=== PATIENT | female | born 1980 | race Caucasian/White ===

== ENCOUNTER 2024-04-01 21:40 | Emergency (ER) | payer OTHER, SELFPAY ==
[2024-04-01 21:44] VITALS: BP 145/92; PULSE 90; RESP 18; TEMP 36.8; O2SAT 99; BMI 32.6
--- NOTE | 2024-04-01 21:55 | ED_ITS ---
HPI - Headache General Date Seen: 04/01/24 Chief Complaint: Headache/Migraine Stated Complaint: Migraine Time Seen by Provider: 04/01/24 21:44 Source: patient Mode of arrival: ambulatory Limitations: no limitations History of Present Illness HPI Narrative: Patient is a 44-year-old female with a history of migraines presenting to emergency department for headache. States the migraines have been going on for years she sees a neurologist for it. This 1 started at about 13:00 today. She took her home Maxalt without improvement in her symptoms. States her neurologist recently daughter started taking 2 of them but when she does makes her feel sick so showed a took 1 today. She took Zofran because she was feeling nauseated. Pain is in her right forehead and seems to go down her neck. Has had migraines like this before was 1 does seem low bit worse. Has not needed to come to the emergency department for migraines before. Denies fevers, chills, vision changes, hearing changes, weakness, numbness, chest pain, shortness of breath, lightheadedness, dizziness. No other concerns noted. Related Data Home Medications ?Medication ?Instructions ?Recorded ?Confirmed drospirenone 3 mg-ethinyl 1 tab PO DAILY 04/01/24 04/01/24 estradiol 0.02 mg tablet rizatriptan 10 mg tablet PO 04/01/24 Allergies Allergy/AdvReac Type Severity Reaction Status Date / Time No Known Drug Allergies Allergy Verified 04/01/24 21:46 Review of Systems 2 Status of ROS: Reports: 10 or more systems reviewed and unremarkable except as noted in History and below [facility] Medical History (Updated 04/01/24 @ 22:44 by Gregorio Gudino DO) Tear of lateral meniscus of right knee ?S83.281A - Other tear of lateral meniscus, current injury, right knee, initial encounter (ICD-10) Situational anxiety ?F41.8 - Other specified anxiety disorders (ICD-10) Panic attack ?F41.0 - Panic disorder [episodic paroxysmal anxiety] (ICD-10) Mixed hyperlipidemia ?E78.2 - Mixed hyperlipidemia (ICD-10) Mild preeclampsia ?O14.00 - Mild to moderate pre-eclampsia, unspecified trimester (ICD-10) Medullary sponge kidney ?Q61.5 - Medullary cystic kidney (ICD-10) Kidney stones ?N20.0 - Calculus of kidney (ICD-10) BEKAH (generalized anxiety disorder) ?F41.1 - Generalized anxiety disorder (ICD-10) Arthritis of right knee ?M17.11 - Unilateral primary osteoarthritis, right knee (ICD-10) Acne vulgaris ?L70.0 - Acne vulgaris (ICD-10) Migraines ?G43.909 - Migraine, unspecified, not intractable, without status migrainosus (ICD-10) Surgical History (Updated 04/01/24 @ 22:13 by Davion Munguia RN) History of tonsillectomy and adenoidectomy ?Z90.89 - Acquired absence of other organs (ICD-10) History of arthroscopy ?Z98.890 - Other specified postprocedural states (ICD-10) History of section ?Z98.891 - History of uterine scar from previous surgery (ICD-10) History of breast augmentation ?Z98.82 - Breast implant status (ICD-10) Social History Smoking Status: Never smoker Second hand tobacco smoke exposure: No How often do you have a drink containing alcohol: never AUDIT-C Alcohol total score: 0 Non-prescribed substance use: denies use Exam Narrative: Exam Narrative: Const: Well-nourished, Well-developed, appears uncomfortable Eyes: PERRL, no conjunctival injection, and symmetrical lids HENT: Atraumatic external nose and ears. Moist mucous membranes. Neck: Symmetric, trachea midline, No thyromegaly. CVS: RRR, No murmurs or gallops. Peripheral pulses 2+ and equal in all extremities RESP: Unlabored respiratory effort. Clear to auscultation bilaterally. GI: Nontender/Nondistended, No rebound or guarding. MSK:Extremities w/o deformity, Normal Active ROM Skin: Warm, Dry. No rashes or lesions. Neuro: Normal Muscle tone, No focal neurological deficits. Psych: Awake, Alert, & Oriented x3. Appropriate mood and affect. Const: Vital Signs, click to edit/add: Vital Signs - 24 hr 04/01/24 21:44 04/01/24 22:07 Temperature 98.2 F 98.2 F Pulse Rate [Right Pulse Oximeter] 90 Respiratory Rate 18 Blood Pressure [Ri ght Upper Arm] 145/92 H Pulse Oximetry 99 Oxygen Delivery Me thod Room Air Course Vital Signs Vital signs: Initial Vital Signs Temperature 98.2 F 04/01/24 21:44 Temperature Source Temporal Artery Scan 04/01/24 21:44 Pulse Rate 90 04/01/24 21:44 Respiratory Rate 18 04/01/24 21:44 Blood Pressure 145/92 H 04/01/24 21:44 Blood Pressure Mean 109 H 04/01/24 21:44 Blood Pressure Position Sitting 04/01/24 21:44 Pulse Oximetry 99 04/01/24 21:44 Oxygen Delivery Method Room Air 04/01/24 21:44 Vital Signs Temperature 98.2 F 04/01/24 21:44 Pulse Rate 90 04/01/24 21:44 Respiratory Rate 18 04/01/24 21:44 Blood Pressure 145/92 H 04/01/24 21:44 Pulse Oximetry 99 04/01/24 21:44 Oxygen Delivery Method Room Air 04/01/24 21:44 Temperature 98.2 F 04/01/24 22:07 Pulse Rate 90 04/01/24 21:44 Respiratory Rate 18 04/01/24 21:44 Blood Pressure 145/92 H 04/01/24 21:44 Pulse Oximetry 99 04/01/24 21:44 Oxygen Delivery Method Room Air 04/01/24 21:44 Medications Administered Medications: Generic Name Dose Route Start Last Admin Trade Name Freq PRN Reason Stop Dose Admin Lactated Ringer's 1,000 mls @ 1,000 mls/hr 04/01/24 21:53 04/01/24 22:00 Lactated Ringers 1000 Ml IV 04/01/24 22:52 1,000 mls/hr .Q1H ONE Administration Discontinued Medications Generic Name Dose Route Start Last Admin Trade Name Freq PRN Reason Stop Dose Admin Diphenhydramine HCl 25 mg 04/01/24 21:53 04/01/24 22:05 Diphenhydramine 50 Mg/Ml Inj IVP 04/01/24 21:54 25 mg ONCE ONE Administration Ketorolac Tromethamine 15 mg 04/01/24 21:53 04/01/24 22:07 Ketorolac 15 Mg/Ml Inj IVP 04/01/24 21:54 15 mg ONCE ONE Administration Metoclopramide HCl 10 mg 04/01/24 21:53 04/01/24 22:00 Metoclopramide Hcl 5 Mg/Ml Inj IVP 04/01/24 21:54 10 mg ONCE ONE Administration MDM - Headache MDM Narrative Medical decision making narrative: Patient is a 44-year-old female presenting for a migraine. She has a history of migraines and be did not describe this as the worst headache of her life. Also it was not sudden onset. Believe subarachnoid hemorrhage is very unlikely. Seems unlikely to be an intracranial mass and I do not believe head imaging is necessary. At this time I will given a migraine cocktail included 1 L of fluids, Reglan, Benadryl, Toradol. After the migraine cocktail her headache is feeling much better and she feels comfortable for discharge. Patient will be discharged at this time. Discharge Plan Discharge Clinical Impression: Migraine Qualifiers: Migraine type: unspecified Status migrainosus presence: without status migrainosus Intractability: not intractable Qualified Code(s): G43.909 - Migraine, unspecified, not intractable, without status migrainosus Patient Disposition: Home, Self-Care Condition: Improved Instructions: Migraine Headache (ED) Additional Instructions: Continue to take her home migraine medication as previously prescribed. Return for new or worsening symptoms straight Prescriptions: No Action rizatriptan 10 mg tablet PO drospirenone-ethinyl estradiol 3-0.02 mg tablet 1 tab PO DAILY Follow Up/Referrals: David Horton PA-C [Physician Director Of Managed Care] - Stand Alone Forms: [employer] Info Instructions
[2024-04-01] MEDS: METOCLOPRAMIDE HCL 5 MG/ML INJ 10 MG IVP (22:00)
[2024-04-01] MEDS: LACTATED RINGERS 1000 ML 1,000 ML IV (22:00)
[2024-04-01] MEDS: diphenhydrAMINE 50 MG/ML inj 25 MG IVP (22:05)
[2024-04-01 22:07] VITALS: TEMP 36.8
[2024-04-01] MEDS: KETOROLAC 15 MG/ML inj IVP (22:07)
--- OUTSIDE RECORDS SUMMARY | 2024-04-01 22:08 | XMS_ITS | Encounter Summary ---
Author Organization [place] Address [address] [place] [address] Care Team Providers Care Supervisor Pyrotechnic Loading Name Role Phone [facility], [facility] Primary Care Provider Desean Hernandez MD Unavailable [phone] Kimberley Brunson MD Unavailable [phone] Desean Hernandez MD Unavailable [phone] Reason for Visit * Reason Onset Date Comments Call Back 11/09/[address] Hernandez requested for Pt to come in by 10/15/2020 to be seen for annual follow up with potential KUB imaging done as well. Please call to schedule with Pt at [phone]. Encounter Details Date Type Department Care Team (Late st Contact Info) Description 11/09/2020 [facility] [address] [place] [address] Desean Hernandez MD [address] [address] Call Back (Pt said that Dr. Hernandez requested for Pt to come in by 10/15/2020 to be seen for annual follow up with potential KUB imaging done as well. Please call to schedule with Pt at [phone].) Social History Tobacco Use Types Packs/Day Years Used Date Smoking Tobacco: Never Smokeless Tobacco: Never PHQ-2 Answer Date Recorded PHQ-2 Score 0 09/15/2019 Sex and Gender Information Value Date Recorded Sex Assigned at Not on file Gender Identity Not on file Sexual Orientation Not on file documented as of this encounter Miscellaneous Notes * Telephone Encounter - Rober Pathak - 11/09/2020 12:13 PM CST [facility] Phone Message May a detailed message be left on voicemail: yes Reason for Call: Other: Pt said that Dr. Hernandez requested for Pt to come in by 10/15/2020 to be seen for annual follow up with potential KUB imaging done as well. Please call to schedule with Pt at [phone] Action Taken: Message routed to: [facility] Urology Travel Screening: Not Applicable STATION AGENT documented in this encounter Plan of Treatment Not on file documented as of this encounter Visit Diagnoses Not on filedocumented in this encounter Care Teams Supervisor Pyrotechnic Loading Relationship Specialty Start Date End Date Clinic, [facility] [address] [place] [address] PCP - General 01/27/19 Desean Hernandez MD [address] [place] [address] Assigned Surgical Provider 07/21/20 06/13/23 [place] [address] [place] [address] Family Medicine 05/07/21 Desean Hernandez MD [address] [place] [address] Assigned Surgical Provider 07/19/23 documented as of this encounter
--- OUTSIDE RECORDS SUMMARY | 2024-04-01 22:08 | XMS_ITS | Encounter Summary ---
Author Organization [place] Address [address] [place] [address] Care Team Providers Care Crm Architect Name Role Phone [facility], [facility] Primary Care Provider Desean Hernandez MD Unavailable Kimberley Brunson MD Unavailable [phone] Desean Hernandez MD Unavailable Reason for Visit * Reason Onset Date Comments Call Back 08/04/2019 Schedule Post-op - David in [place] Encounter Details Date Type Department Care Team (Late st Contact Info) Description 08/04/2019 [facility] [address] [place] [address] Desean Hernandez MD [address] [address] Call Back (Schedule Post-op - David in [place] ) Social History Tobacco Use Types Packs/Day Years Used Date Smoking Tobacco: Never Smokeless Tobacco: Never Sex and Gender Information Value Date Recorded Sex Assigned at Not on file Gender Identity Not on file Sexual Orientation Not on file documented as of this encounter Miscellaneous Notes * Telephone Encounter - Merced Flores - 08/04/2019 10:24 AM CST [facility] Call Center Phone Message May a detailed message be left on voicemail: yes Reason for Call: Other: Pt called and would like to schedule a post-op with Dr. hernandez in [place]. Please call back pt. Thanks. Action Taken: Message routed to: Other: [place] [facility] documented in this encounter Plan of Treatment Not on file documented as of this encounter Visit Diagnoses Not on filedocumented in this encounter Care Teams Crm Architect Relationship Specialty Start Date End Date Clinic, [facility] [address] [place] [address] PCP - General 01/27/19 Desean Hernandez MD [address] [place] [address] Assigned Surgical Provider 07/21/20 06/13/23 [place] [address] [place] [address] Family Medicine 05/07/21 Desean Hernandez MD [address] [place] [address] Assigned Surgical Provider 07/19/23 documented as of this encounter
--- OUTSIDE RECORDS SUMMARY | 2024-04-01 22:08 | XMS_ITS | Clinical Summary ---
Author Organization [facility] Address [place], [place] [address] Care Team Providers Care Locomotive Supervisor Name Role Phone Kimberley Brunson MD Primary Care Provider Tatyana Zuluaga Unavailable [phone] Unavailable [phone] Allergies Active Allergy Reactions Criticality Noted Date Comments Morphine Vomiting 01/27/2019 Medications Medication Sig Dispensed Refills Start Date End Date Status LORazepam (ATIVAN) 0.5 mg tabIndications:Gene ralized anxiety disorder,Situationa l anxiety Take 1 Tablet (0.5 mg) by mouth once daily. 10 Tablet 03/26/2023 Active ondansetron (ZOFRAN ODT) 4 mg disintegrating tabletIndications:M igraine with aura, not intractable, without status migrainosus Place 1 Tablet (4 mg) on the tongue every 8 hours if needed for Nausea/Vomitin g. 30 Tablet 03/26/2023 Active rizatriptan (MAXALT) 5 mg tabletIndications:M igraine with aura, not intractable, without status migrainosus Take 1 Tablet (5 mg) by mouth every 2 hours if needed for Migraine. Give at minimum 2hrs apart. Max Dose: 30mg per 24hrs. 10 Tablet 12 03/26/2023 Active tretinoin 0.05 % 0.05 % creamIndications:Ac ne vulgaris Apply topically to affected area(s) at bedtime. 45 g 03/26/2023 Active triamcinolone (ARISTOCORT) 0.1 % ointmentIndications :Acne vulgaris Apply topically to affected area(s) 3 times daily if needed (Itching). 80 g 03/26/2023 Active clindamycin 1% (CLEOCIN-T) 1 % lotionIndications:A cne vulgaris Apply topically to affected area(s) two times daily. 180 mL 04/09/2023 Active drospirenone-ethiny l estradioL (ROLANDO) 3-0.02 mg tablet Take 1 Tablet by mouth once daily. 06/13/2023 06/12/20 24 Active phentermine (ADIPEX-P) 37.5 mg tabletIndications:O verweight TAKE 1/2 TABLET BY MOUTH BEFORE BREAKFAST AND AT LUNCH 30 Tablet 02/26/2024 Active buPROPion (WELLBUTRIN XL) 150 mg Extended-Release tabletIndications:G eneralized anxiety disorder,Situationa l anxiety TAKE 1 TABLET(150 MG) BY MOUTH EVERY MORNING 90 Tablet 1 03/29/2024 Active buPROPion (WELLBUTRIN XL) 150 mg Extended-Release tabletIndications:G eneralized anxiety disorder,Situationa l anxiety Take 1 Tablet (150 mg) by mouth every morning. 100 Tablet 3 03/26/2023 03/29/20 24 Discontinued Active Problems Problem Noted Date Diagnosed Date Acne vulgaris 04/09/2023 Migraine with aura, not intr actable, without status migrainosus 04/09/2023 Generalized anxiety disorder 04/30/2021 Situational anxiety 04/30/2021 Panic attack 10/26/2017 Resolved Problems Problem Noted Date Diagnosed Date Resolved Date Mixed dyslipidemia 10/08/2019 Overview: ASCVD 10 year risk 0.56%. Left wrist pain 11/14/2018 04/09/2023 Adjustment disorder with anxiety 10/26/2017 04/09/2023 Arthritis of knee, right 06/12/201508/2023 Tear of lateral meniscus of right knee 06/01/2015 04/09/2023 Mild preeclampsia 07/27/2009 04/09/2023 Supervision of normal first 03/23/2009 04/09/2023 Encounters Date Type Department Care Team Description 03/27/2024 Refill [facility] [address] [place] [address] Kimberley Brunson MD Refill Request (Bupropion) 03/04/[address] [phone] Tatyana Zuluaga PA Prior Authorization (phentermine (ADIPEX-P) 37.5 mg tablet DENIED) 02/24/2024 Refill [facility] [address] [place] [address] Kimberley Brunson MD Refill Request (Clindamycin 1%) 02/24/[address] [facility] [id number] [place] [phone] Tatyana Zuluaga PA Refill Request (Phentermine) 01/22/2024 11:40 AM CDT Office Visit [facility] [address] [place] [address] Erika Zuleta PA Vaginal Itching 01/22/2024 Travel from Last 3 Months Immunizations Name Administration Dates Next Due Anthrax Vaccine 07/21/2004, 4,06/14/2003,12/24,12/11/2002,11/25/2002 Hepatitis A (Adult) 03/02/2002,07/18/2001 Influenza A (H1N1), Inactiva merle (Age >=3 Years) 08/08/2009 Influenza, IIV3 (Age >=3 years) 06/26/2009 Influenza, IIV4 06/21/2020,06/28/2019 Influenza, Whole Virus 06/26/2009,2005,08/08/2004,06/30,08/14/2002,07/16/2001,09/04/2000 ,08/19/1999 Influenza, split (incl. saurabh fied surface antigen) 08/17/2010,08/09/2008,10/10/2007,08/18 Meningococcal Vaccine (Menomune) 11/25/2002 Oral Polio Vaccine 06/29/1997 Smallpox (Vaccinia) Live [id number] 07/21/2003 Td (Age >=7 Years) 10/08/2019,07/16/2001 Tdap 07/31/2009 Typhoid (injectable) 11/18/2009 Typhoid Parenteral,Killed 10/10/2007,,07/21/2003,07/18 Yellow Fever 07/16/2001 Family History Medical History Relation Name Comments Allergies Brother Zak Hyperlipidemia Brother Zak Hypertension Brother Zak No Known Problems Daughter Evangelina Cancer-prostate Father Diabetes Father Diabetes type II Father Hyperlipidemia Father Hypertension Father Cancer Maternal Grandmother Allergies Mother Anxiety disorder Mother Depression Mother Hyperlipidemia Mother Obesity Mother Stroke Mother Thyroid Disease Mother Diabetes Paternal Grandfather Cancer-breast Paternal Grandmother Allergies Son Matthew Sun Allergy Relation Name Status Comments Brother Zak Alive Daughter Evangelina Alive Father Alive Maternal Grandfather Alive Maternal Grandmother Mother Alive Paternal Grandfather Paternal Grandmother Son Matthew Alive Social History Tobacco Use Types Packs/Day Years Used Date Smoking Tobacco: Former Cigarettes 0.3 1.2 2 003 - 12/12/2003 Smokeless Tobacco: Never Tobacco Cessation:Counseling Given: Yes Comments:no exposure Alcohol Use Standard Drinks/Week Comments Not Currently 0 (1 standard drink = 0.6 oz pur e alcohol) PHQ-2 Answer Date Recorded PHQ-2 TOTAL SCORE 0 03/26/2023 Social Connections Answer Date Recorded Frequency of Communication with Friends and Fami ly 0 04/09/2023 Financial Resource Strain Answer Date R ecorded Difficulty of Paying Living Expenses 3 04/09/2023 Difficulty of Paying Living Expenses Not on file 04/09/2023 Food Insecurity Answer Date Recorded Worried About Running Out of Food in the Last Ye ar 1 04/09/2023 Transportation Needs Answer Date Record ed Lack of Transportation (Medical) 1 04/09/2023 Housing Stability Answer Date Recorded Unable to Pay for Housing in the Last Year 1 04/09/2023 Sex and Gender Information Value Date Recorded Sex Assigned at Not on file Gender Identity Not on file Sexual Orientation Not on file Obstetrics History Para Term AB IAB SAB Ectopic Multiple Livin g Live Births 5 1 1 0 4 0 4 0 1 1 Date Outcome GA Total Labor Labor/2nd/3rd Weight Sex Type Anes PTL Deja A1 A5 Name Clin SAB SAB SAB SAB 07/28 Term 3.77 kg (8 lb 5 oz) M CS-Un spec Living Matthew Comments LMP unknown Last Filed Vital Signs Vital Sign Reading Time Taken Comments Blood Pressure 110/70 01/22/2024 11:53 AM CDT Pulse 82 01/22/2024 11:53 AM CDT Temperature 37.2 ??C (99 ??F) 11/04/2023 12:04 PM PRODUCTION MECHANIC TIN CANS Respiratory Rate 16 08/14/2023 11:16 AM PRODUCTION MECHANIC TIN CANS Oxygen Saturation 100% 01/22/2024 11:53 AM CDT Inhaled Oxygen Concentration - - Weight 73.6 kg (162 lb 4.8 oz) 01/22/2024 11:53 AM CDT Height 161.1 cm (5' 3.43) 01/22/2024 11:53 AM C DT Body Mass Index 28.37 01/22/2024 11:53 AM CDT Plan of Treatment Health Maintenance Due Date Last Done Comments COVID-19 vaccine series () 05/30/2023 Colonoscopy through age 75 02/18/2024 Depression screening for age 12+ 04/09/2024 04/09/2023, 03/26/2023, 02/21/2022, Additional history exists Mammogram for age 45-75 05/28/2024 05/28/2023 Influenza for age 9-49 05/30/2024 0, 06/28/2019, 08/08/2009, Additional history exists BMI (ht and wt on same day) for age 18+ 01/21/2025 01/22/2024, 12/05/2023, 11/04/2023, Additional history exists Pap test for age 21-65 05/12/2026 3 (Verified in Care Everywhere or Patient Record), 08/17/2018 (Verified in Care Everywhere or Patient Record), 10/23/2010, Additional history exists Lipids for age 45-75 04/09/2028 04/09/2023 Tetanus booster 10/08/2029 10/08/2019, 11/0 10/2008, 07/16/2001 HIV for age 15-65 Completed 12/22/2008 Tdap Completed 07/31/2009 Hepatitis C screening for age 18-79 Completed 04/09/2023 Pneumococcal series for age 6-64 Aged Out No longer eligible based on patient's age to complete this topic Procedures Procedure Name Priority Date/Time Associated Diagnosis Comments TRICHOMONAS, HANS, AND BACTERIAL VAGINOSIS BY JOSE JUAN Routine 01/22/2024 12:28 PM CDT Vaginal irritation UA W/ SEDIMENT EXAM REFLEXED PER CRITERIA Routine 01/22/2024 11:48 AM CDT Dysuria XR MAMMO TIFFANIE BILAT SCREEN IMPLANT Routine 05/28/2023 1:21 PM CDT Visit for screening mammogram LC HCV ANTIBODY RFX TO QUANT PCR Routine 04/09/2023 12:29 PM CDT Need for hepatitis C screening test LIPID PANEL W REFLEX MEASURED LDL Routine 04/09/2023 12:29 PM CDT Screening, lipid MACHINE PULLER AND LASTER THIN PREP PAP SCREEN IMAGED Routine 10/23/2010 1:46 PM PRODUCTION MECHANIC TIN CANS Screening for malignant neoplasm of the cervix ANTI HIV 1/2 Routine 12/22/2008 2:35 PM CDT Supervision of Normal First from Last 3 Months or Most Recently Relevant to Health Maintenance Results * TRICHOMONAS, HANS, AND BACTERIAL VAGINOSIS BY JOSE JUAN (01/22/2024 12:28 PM CDT) HANS SPECIES Negative Negative 4 8:09 PM CDT [facility] HANS GLABRATA Negative Negative 01/22/2024 8:09 PM CDT [facility] TRICHOMONAS VVA Negative Negative 4 8:09 PM CDT [facility] BACTERIAL VAGINOSIS Negative Negative 01/22/2024 8:09 PM CDT [facility] Other VAGINAL SWAB / Unknown Non-Blood / Unknown 01/22/2024 12:28 PM CDT 01/22/2024 12:28 PM CDT Erika RODRIGUEZ MICROBIOLOGY [facility] [address] [place] [address], * (ABNORMAL) UA W/ SEDIMENT EXAM REFLEXED PER CRITERIA (01/22/2024 11:48 AM CDT) COLOR Yellow Yellow Color 01/22/2024 11:52 AM CDT [facility] CLARITY Clear Clear Clarity 01/22/2024 11:52 AM CDT [facility] SPECIFIC GRAVITY,URINE >=1.030(A) 1.010, 1.015, 1.020, 1.025 01/22/2024 11:52 AM CDT [facility] PH,URINE 5.5 6.0, 7.0, 8.0, 5.5, 6.5, 7.5, 8.5 01/22/2024 11:52 AM CDT [facility] UROBILINOGEN, QUALITATIVE Normal Normal EU/dl 01/22/2024 11:52 AM CDT [facility] [place] PROTEIN, URINE Negative Negative mg/dL 01/22/2024 11:52 AM CDT [facility] [place] [place] GLUCOSE, URINE Negative Negative mg/dL 01/22/2024 11:52 AM CDT [facility] [place] [place] KETONES,URINE Negative Negative mg/dL 01/22/2024 11:52 AM CDT [facility] BILIRUBIN,URI NE Negative Negative 01/22/2024 11:52 AM CDT [facility] [place] OCCULT BLOOD,URINE Negative Negative 01/22/2024 11:52 AM CDT [facility] [place] [place] NITRITE Negative Negative 01/22/2024 11:52 AM CDT [facility] [place] [place] LEUKOCYTE ESTERASE Negative Negative 01/22/2024 11:52 AM CDT [facility] Urine URINE SPECIMEN / Unknown Non-Blood / Unknown 01/22/2024 11:48 AM CDT 01/22/2024 11:48 AM CDT Erika RODRIGUEZ URINE [facility] [address] [place] [address], * XR MAMMO TIFFANIE BILAT SCREEN IMPLANT (05/28/2023 1:21 PM CDT) Anatomical Region Laterality Modality BREASTS, Breast Left, Breast Right Bilateral Mammography Impressions 05/29/2023 12:47 PM CDT ??There is no radiographic evidence for malignancy. ??Recommend annual mammograms. MAMMOGRAM ASSESSMENT: ??ACR 2 Benign PATIENTS: You will also receive a letter with your examination results in an easy to read format. ??If you have questions about your results, please contact your referring provider. Narrative 05/29/2023 12:47 PM CDT For Patients: As a result of the Cures Act, medical imaging exams and procedure reports are released immediately into your electronic medical record. You may view this report before your referring provider. If you have questions, please contact your health care provider. XR MAMMO TIFFANIE BILAT SCREEN IMPLANT [[id number]] CLINICAL HISTORY: ??This is an asymptomatic 43 y.o. patient. INDICATION FOR EXAM: Mammogram Screening. TECHNIQUE: CC & MLO views were obtained. Implant displacement views were obtained. This study was evaluated with the assistance of Computer-Aided Detection. Breast Tomosynthesis was used in interpretation. COMPARISON FILMS: Yes 12/14/21 [facility] 08/02/20 [facility] FINDINGS: ??The breasts are heterogeneously dense, which may obscure small masses. ??No suspicious masses or microcalcifications. ??There are breast implant(s) present.. Kimberley Brunson MD MAMMO * LC HCV ANTIBODY RFX TO QUANT PCR (04/09/2023 12:29 PM CDT) HCV Ab Non Reactive Non Reactive 04/11/2023 10:06 PM CDT [facility] Blood BLOOD SPECIMEN / Unknown Venipuncture / Unknown 04/09/2023 12:29 PM CDT 04/09/2023 12:29 PM CDT Narrative [facility]) - 04/11/2023 10:06 PM CDT Performed at: ??[address] - [address] ??[id number] [employer] Center Analyst: Anoop Pérez MD, Phone: ??[phone] Kimberley Brunson MD LABORATORY [facility] ([facility] [address] [place] [address] * (ABNORMAL) LIPID PANEL W REFLEX MEASURED LDL (04/09/2023 12:29 PM CDT) CHOLESTEROL,TOTAL 214(H) 100 - 199 mg/dL 04/09/2023 5:47 PM CDT [facility] Comment: Cholesterol, Total Reference Ranges Desirable <200 mg/dL Borderline 200-239 mg/dL High >=240 mg/dL TRIGLYCERIDES 220(H) <150 mg/dL 04/09/2023 5:47 PM CDT [facility] HDL CHOLESTEROL 55 >40 mg/dL 5:47 PM CDT [facility] NON-HDL CHOLESTEROL 159(H) <145 mg/dl 04/09/2023 5:47 PM CDT [facility] CHOL/HDL RATIO 3.89 <4.50 04/09/2023 5:47 PM CDT [facility] LDL CHOLESTEROL 115 <=130 mg/dL 04/09/2023 5:47 PM CDT [facility] VLDL CHOLESTEROL 44(H) <=30 mg/dL 04/09/2023 5:47 PM CDT [facility] PROVIDER ORDERED STATUS RANDOM 04/09/2023 5:47 PM CDT [facility] Blood BLOOD SPECIMEN / Unknown Venipuncture / Unknown 04/09/2023 12:29 PM CDT 04/09/2023 12:29 PM CDT Kimberley Brunson MD CHEMISTRY [facility] [address] [place] [address], * MACHINE PULLER AND LASTER THIN PREP PAP SCREEN IMAGED (10/23/2010 1:46 PM PRODUCTION MECHANIC TIN CANS) CYTOLOGY CYTOPATHOLOGY REPORT [facility] Status: Final Status ?[id number] CLINICAL INFORMATION Last Date of LMP ? :09/29/10 Last Pap Date ?:09/11/2009 Last Pap Result ?:NIL ABN [place]/Bx Past 5 YRS :None Hormone Usage ?:BCP/OCP/Patch/R ing Menstrual Status ? :Regular Periods [place]/Bx done today ? :No Additional Information :None given HPV Request ?:HPV if ASCUS SPECIMEN SOURCE ?:Cervical/vagina l ThinPrep Vial, screening SPECIMEN ADEQUACY ?:Satisfactory for evaluation Endocervical component ? present. INTERPRETATION/RES ULT Negative for intraepithelial lesion or malignancy (NIL) Cytology 1st Screener ??:sag Cytology 2nd Screener ??:djs Signed by ?:djs This specimen was screened by the FDA approved ThinPrep Imaging System and manually reviewed. NOTE: ??The Pap test is a screening technique, not a diagnostic procedure. ??It is used ??primarily to screen for squamous cancers and precursor lesions. ??Published studies have shown that it is subject to both false negative and false positive results. ??The pap test should not be used as the sole means to diagnose or exclude pre-malignant and malignant lesions. COLLECTED:10/23/10 ? ACCESSIONED: ??10/24/10 ?? SIGNED: ??10/31/10 [facility] PAP [place] CODE NIL [facility] Cervical/Vaginal (Cervical/Vagina l) 10/23/2010 1:46 PM PRODUCTION MECHANIC TIN CANS 10/23/2010 1:45 PM PRODUCTION MECHANIC TIN CANS Malina Dover MD PATHOLOGY/CYT OLOGY [facility]OR[facility]ORY INTERNAL ZIP [address] [place] [id number] * ANTI HIV 1/2 (12/22/2008 2:35 PM CDT) ANTI HIV 1/2 Non-reacti ve [facility] Blood specimen (specimen) BLOOD SPECIMEN / Unknown 12/22/2008 2:35 PM CDT 12/22/2008 2:28 PM CDT Malina Dover MD SEND OUTS Performing Organization Address City/[facility]/ZIP Co de Phone Number [facility] INTERNAL ZIP [address] [place] [phone] from Last 3 Months or Most Recently Relevant to Health Maintenance Advance Directives * Full Code (Latest Code Status on File) Date Activated Date Inactivated Comments 07/28/2009 9:38 PM 08/01/2009 4:38 PM * Full Code Date Activated Date Inactivated Comments 07/27/2009 2:47 PM 07/28/2009 9:38 PM * Full Code Date Activated Date Inactivated Comments 07/24/2009 1:33 PM 07/25/2009 2:09 AM * Full Code Date Activated Date Inactivated Comments 07/23/2009 9:40 AM 07/24/2009 2:04 AM * Full Code Date Activated Date Inactivated Comments 07/22/2009 12:20 PM 07/23/2009 2:04 AM Care Teams Locomotive Supervisor Relationship Specialty [place] [address] [place] [address] PCP - General Family Practice 09/27/21 [place] [address] [place], [place] [address] Physician Case Work Aide 06/23/[address] [place] [address] [place] [address] Labor Relations Consultant 06/23/23
--- OUTSIDE RECORDS SUMMARY | 2024-04-01 22:08 | XMS_ITS | Encounter Summary ---
Author Organization [employer] Address [address] [place] [address] Care Team Providers Care Blanket Washer Name Role Phone Bridget Rios APRN, NATIONAL INSURANCE OFFICER Primary Care Provider Bharati vailable Reason for Visit * Reason Comments ACNE Acne f/u - overall a cne has lessened but still has some deep cystic 'bumps'Spironolactone 50 mg qd, BC, clindamycin, tretinoin 0.05% cream Encounter Details Date Type Department Care Team (Late st Contact Info) Description 02/04/2024 1:30 PM CDT Office Visit [facility] [address] [place] [address] Maritza Mccormick MD [address] [place] [phone] Acne, unspecified acne type (Primary Dx); High risk medication use Social History Tobacco Use Types Packs/Day Years Used Date Smoking Tobacco: Never Smokeless Tobacco: Never Alcohol Use Standard Drinks/Week Comments Not Currently 0 (1 standard drink = 0.6 oz pur e alcohol) 1-2 times a month Sex and Gender Information Value Date Recorded Sex Assigned at Female 04/29/2022 1:11 PM CDT Gender Identity Female 04/29/2022 1:11 PM CDT Sexual Orientation Straight 04/29/2022 1: 11 PM CDT documented as of this encounter Progress Notes * Maritza Mccormick MD - 02/04/2024 12:00 AM CDT NAME: PETRA ALCANTARA CSN: [id number] CLINIC NOTE DATE OF SERVICE: 02/04/2024 : 1980 HISTORY OF PRESENT ILLNESS: The patient is a 43-year-old, who presents for followup. She has chronic acne. She is on Eri, spironolactone 50 mg daily, clindamycin, and tretinoin. She is better, but isgetting some deeper lesions on the cheeks. She is otherwise healthy and has no other skin lesions of concern. MEDICATIONS: Reviewed and updated in [employer]. ALLERGIES: REVIEWED AND UPDATED IN [employer]. PHYSICAL EXAM: GENERAL: The patient is healthy appearing and in no apparent distress. SKIN: Exam is of the head and neck. There are few deeper inflammatory nodules on the cheeks. No other skin lesions of concern. DIAGNOSIS: Chronic acne, improved but with continued activity. TREATMENT: 1.Clinical findings were discussed. 2.We will increase spironolactone to 100 mg daily. We will recheck potassium in 3 months. Lab orderwas entered. 3.She will continue with oral contraceptives. 4.She will continue clindamycin lotion in the morning. 5.She will continue tretinoin 0.05 cream in the evening. 6.Followup will be annually. MARITZA MCCORMICK MD DSE/AQS /[id number] documented in this encounter Plan of Treatment Scheduled Orders Name Type Priority Associated Diagnoses Orde r Schedule Electrolytes - NA, K, CL, Bicarb (LYTES) Lab Routine High risk medication use Expected: 05/06/2024, Expires: 08/04/2024 documented as of this encounter Visit Diagnoses Diagnosis Acne, unspecified acne type- Primary High risk medication use Encounter for long-term (current) use of other medications documented in this encounter Care Teams Blanket Washer Relationship Specialty Start Date End Date Bridget Rios, MECHANICAL MAINTENANCE TECHNICIAN, NATIONAL INSURANCE OFFICER PCP - General 05/30/16 documented as of this encounter
--- OUTSIDE RECORDS SUMMARY | 2024-04-01 22:08 | XMS_ITS | Encounter Summary ---
Author Organization [facility] Address [address] [address] Care Team Providers Care [facility] Name Role Phone Bridget Rios APRN, CNP Primary Care Provider Bharati vailable Reason for Referral * (Routine) - New Request Specialty Diagnoses / Procedures Referred By Contac t Referred To Contact Diagnoses Screening for colon cancer Procedures Endoscopy, colon, diagnostic Endoscopy, colon, diagnostic Cyndi Quick APRN, CNP [address] [place] [address] Referral ID Status Reason Start Date Expiration Date V isits Requested Visits Authorized [id number] New Request 10/29/2023 10/29/2025 1 1 Reason for Visit * (Routine) - New Request Specialty Diagnoses / Procedures Referred By Contac t Referred To Contact Diagnoses Screening for colon cancer Procedures Endoscopy, colon, diagnostic Endoscopy, colon, diagnostic Cyndi Quick APRN, CNP [address] [place] [address] Referral ID Status Reason Start Date Expiration Date V isits Requested Visits Authorized [id number] New Request 10/29/2023 10/29/2025 1 1 Encounter Details Date Type Department Care Team (Latest Contact Info) Description 02/11/2024 2:55 PM CDT - 02/11/2024 11:59 PM CDT Hospital Encounter [facility] Endoscopy Procedures [address] [place] [address] Connor Burleson MD [address] [facility] [address] [place] [address] Screen for colon cancer (Primary Dx); Screening for colon cancer Discharge Disposition: Home Social History Tobacco Use Types Packs/Day Years [...] PM CDT documented as of this encounter Last Filed Vital Signs Vital Sign Reading Time Taken Comments Blood Pressure 124/76 02/11/2024 4:35 PM CDT Pulse 93 02/11/2024 4:35 PM CDT Temperature - - Respiratory Rate 16 02/11/2024 4:35 PM CDT Oxygen Saturation 99% 02/11/2024 4:35 PM CDT Inhaled Oxygen Concentration - - Weight 72.6 kg (160 lb) 02/11/2024 3:04 PM CDT Height 160 cm (5' 3) 02/11/2024 3:04 PM CDT Body Mass Index 28.34 02/11/2024 3:04 PM CDT documented in this encounter Medications at Time of Discharge Medication Sig Dispensed Refills Start Date End Date ALPRAZolam (XANAX) 0.25 MG tablet Take 1 Tablet (0.25 mg) by mouth. 10/24/2017 clindamycin (CLEOCIN T) 1 % lotion APPLY TOPICALLY TO THE AFFECTED AREA IN THE MORNING FOR ACNE 60 mL 3 11/25/2023 doxycycline monohydrate (MONODOX) 100 MG capsule Take 1 Capsule (100 mg) by mouth two times a day. 60 Capsule 06/11/2023 HYDROQUINONE No. 01 Apply topically to face at bedtime for 4 to 6 months 30 g 1 01/28/2022 imiquimod (ALDARA) 5 % creamIndications:Genit al warts Apply topically three times a week. 24 Each 1 08/17/2018 LORazepam (ATIVAN) 0.5 MG tablet Take 1 Tablet (0.5 mg) by mouth. 10/24/2017 OMEPRAZOLE OR ondansetron (ZOFRAN) 8 MG tablet Take 1 Tablet (8 mg) by mouth three times a day. 07/25/2023 Phentermine HCl (ADIPEX-P) 37.5 MG tablet Take 0.5 Tablets (18.75 mg) by mouth two times a day. rizatriptan (MAXALT) 10 MG tablet Take 1 Tablet (10 mg) by mouth. 09/05/2023 spironolactone (ALDACTONE) 100 MG tablet Take 1 Tablet (100 mg) by mouth daily. 90 Tablet 3 02/04/2024 02/03/2025 tretinoin (RETIN-A) 0.05 % cream Apply pea-size amount to entire face at bedtime. 45 g 3 06/11/2023 triamcinolone acetonide (KENALOG) 0.1 % ointmentIndications:He morrhoids, unspecified hemorrhoid type Apply to affected area twice daily as needed. 30 g 11/23/2021 drospirenone-ethinyl estradiol (ROLANDO) 3-0.02 MG tablet Take 1 Tablet by mouth daily. 84 Tablet 3 06/13/2023 2024 documented as of this encounter Progress Notes * Samara Rangel RN - 02/11/2024 3:30 PM CDT Patient given pain med's intermittently for discomfort.Vitals charted per department protocol.Patient tolerated procedure. * Canelo Wadsworth RN - 02/11/2024 3:30 PM CDT Patient alert, oriented. Denies pain at this time. Tolerating liquids. Discussed discharge teaching. Patient/family given handouts. Verbalized understanding. documented in this encounter Procedure Notes * Connor Burleson MD - 02/11/2024 3:42 PM CDT Patient Name: Petra Steven Procedure Date: 02/11/2024 3:42 PM Date of : 1980 Admit Type: Outpatient Age: 43 Note Status: Finalized Attending MD: Connor Burleson MD, Procedure: Colonoscopy Indications: Screening for colorectal malignant neoplasm, This is the patient's first colonoscopy Providers: Connor Burleson MD, Samara Rangel Referring MD: Cyndi Dykes Medicines: Midazolam 5 mg IV, Fentanyl 125 micrograms IV, CO2 Complications: No immediate complications. Estimated blood loss: None. Procedure: After I obtained informed consent, the scope was passed under direct vision. Throughout the procedure, the patient's blood pressure, pulse, and oxygen saturations were monitored continuously. The [id number] was introduced through the anus and advanced to the cecum, identified by appendiceal orifice and ileocecal valve. The colonoscopy was performed without difficulty. The quality of the bowel preparation was good. The ileocecal valve, appendiceal orifice, and rectum were photographed. The patient tolerated the procedure. Findings: Skin tags were found on perianal exam. Normal mucosa was found in the entire colon. Non-bleeding internal hemorrhoids were found during retroflexion. The hemorrhoids were large. The exam was otherwise without abnormality on direct and retroflexion views. Moderate Sedation: Moderate (conscious) sedation was administered by the nurse and supervised by the endoscopist. The following parameters were monitored: oxygen saturation, heart rate, blood pressure, and response to care. Total physician intraservice time was 22 minutes. This time is the duration from the initial medication administration until the dual rate supervisor assists with initial maneuvers (biopsy / polypectomy / etc.), or if no maneuvers are performed, until the endoscopist leaves the room. Impression: - No polyps or cancer. - Normal mucosa in the entire examined colon. - Non-bleeding internal hemorrhoids. - The examination was otherwise normal on direct and retroflexion views. - No specimens collected. Recommendation: - Discharge patient to home. - High fiber diet. - Continue present medications. - Repeat colonoscopy in 10 years for screening purposes. Procedure Code(s): --- Professional --- 73016, Colonoscopy, flexible; diagnostic, including collection of specimen(s) by brushing or washing, when performed (separate procedure) G0500, Moderate sedation services provided by the same physician or other qualified health career development manager performing a gastrointestinal endoscopic service that sedation supports, requiring the presence of an independent trained observer to assist in the monitoring of the patient's level of consciousness and physiological status; initial 15 minutes of intra-service time; patient age 5 years or older (additional time may be reported with 50727, as appropriate) Diagnosis Code(s): --- Professional --- Z12.11, Encounter for screening for malignant neoplasm of colon K64.8, Other hemorrhoids K64.4, Residual hemorrhoidal skin tags CPT copyright 2021 [employer]. All rights reserved. The codes documented in this report are preliminary and upon aboriginal education worker coordinator review may be revised to meet current compliance requirements. Connor Burleson MD 02/11/2024 4:23:29 PM Number of Addenda: 0 Note Initiated On: 02/11/2024 3:42 PM Endoscopy Report documented in this encounter Plan of Treatment Not on file documented as of this encounter Procedures Procedure Name Priority Date/Time Associated Diagnosis Comments ENDOSCOPY, COLON, SCREENING/DIAGNOSTI C Routine 02/11/2024 3:42 PM CDT Screening for colon cancer POCT URINE Routine 02/11/2024 3:18 PM CDT Screen for colon cancer documented in this encounter Results * Endoscopy, colon, diagnostic (02/11/2024 3:42 PM CDT) 02/11/2024 3:42 PM CDT Narrative PN PROVATION - 02/11/2024 3:42 PM CDT Patient Name: Petra Steven Procedure Date: 02/11/2024 3:42 PM Date of : 1980 Admit Type: Outpatient Age: 43 Note Status: Finalized Attending MD: Connor Burleson MD, Procedure: ? Colonoscopy Indications: ? Screening for colorectal malignant ? neoplasm, This is the patient's ? first colonoscopy Providers: ? Connor Burleson MD, Samara Rangel Referring : ?Cyndi Dykes Medicines: ? Midazolam 5 mg IV, Fentanyl 125 ? micrograms IV, CO2 Complications: ? No immediate complications. ? Estimated blood loss: None. Procedure: ? After I obtained informed consent, ? the scope was passed under direct ? vision. Throughout the procedure, ? the patient's blood pressure, ? pulse, and oxygen saturations were ? monitored continuously. The ? [id number] was introduced through ? the anus and advanced to the cecum, ? identified by appendiceal orifice ? and ileocecal valve. The ? colonoscopy was performed without ? difficulty. The quality of the ? bowel preparation was good. The ? ileocecal valve, appendiceal ? orifice, and rectum were ? photographed. The patient tolerated ? the procedure. Findings: ? Skin tags were found on perianal exam. ? Normal mucosa was found in the entire colon. ? Non-bleeding internal hemorrhoids were found during ? retroflexion. The hemorrhoids were large. ? The exam was otherwise without abnormality on direct ? and retroflexion views. Moderate Sedation: ? Moderate (conscious) sedation was administered by the ? nurse and supervised by the endoscopist. The ? following parameters were monitored: oxygen ? saturation, heart rate, blood pressure, and response ? to care. Total physician intraservice time was 22 ? minutes. ? This time is the duration from the initial medication ? administration until the dual rate supervisor assists with ? initial maneuvers (biopsy / polypectomy / etc.), or ? if no maneuvers are performed, until the endoscopist ? leaves the room. Impression: ?- No polyps or cancer. ? - Normal mucosa in the entire ? examined colon. ? - Non-bleeding internal hemorrhoids. ? - The examination was otherwise ? normal on direct and retroflexion ? views. ? - No specimens collected. Recommendation: ?- Discharge patient to home. ? - High fiber diet. ? - Continue present medications. ? - Repeat colonoscopy in 10 years ? for screening purposes. Procedure Code(s): ? --- Professional --- ? 17035, Colonoscopy, flexible; ? diagnostic, including collection of ? specimen(s) by brushing or washing, ? when performed (separate procedure) ? G0500, Moderate sedation services ? provided by the same physician or ? other qualified health care ? professional performing a ? gastrointestinal endoscopic service ? that sedation supports, requiring ? the presence of an independent ? trained observer to assist in the ? monitoring of the patient's level ? of consciousness and physiological ? status; initial 15 minutes of ? intra-service time; patient age 5 ? years or older (additional time may ? be reported with 99378, as ? appropriate) Diagnosis Code(s): ? --- Professional --- ? Z12.11, Encounter for screening for ? malignant neoplasm of colon ? K64.8, Other hemorrhoids ? K64.4, Residual hemorrhoidal skin ? tags CPT copyright 2021 [employer]. All rights reserved. The codes documented in this report are preliminary and upon aboriginal education worker coordinator review may be revised to meet current compliance requirements. Connor Burleson MD 02/11/2024 4:23:29 PM Number of Addenda: 0 Note Initiated On: 02/11/2024 3:42 PM ? Endoscopy Report Procedure Note Connor Burleson MD - 02/11/2024 Patient Name: Petra Steven Procedure Date: 02/11/2024 3:42 PM Date of : 1980 Admit Type: Outpatient Age: 43 Note Status: Finalized Attending MD: Connor Burleson MD, Procedure: Colonoscopy Indications: Screening for colorectal malignant neoplasm, This is the patient's first colonoscopy Providers: Connor Burleson MD, Samara Rangel Referring MD: Cyndi Dykes Medicines: Midazolam 5 mg IV, Fentanyl 125 micrograms IV, CO2 Complications: No immediate complications. Estimated blood loss: None. Procedure: After I obtained informed consent, the scope was passed under direct vision. Throughout the procedure, the patient's blood pressure, pulse, and oxygen saturations were monitored continuously. The [id number] was introduced through the anus and advanced to the cecum, identified by appendiceal orifice and ileocecal valve. The colonoscopy was performed without difficulty. The quality of the bowel preparation was good. The ileocecal valve, appendiceal orifice, and rectum were photographed. The patient tolerated the procedure. Findings: Skin tags were found on perianal exam. Normal mucosa was found in the entire colon. Non-bleeding internal hemorrhoids were found during retroflexion. The hemorrhoids were large. The exam was otherwise without abnormality on direct and retroflexion views. Moderate Sedation: Moderate (conscious) sedation was administered by the nurse and supervised by the endoscopist. The following parameters were monitored: oxygen saturation, heart rate, blood pressure, and response to care. Total physician intraservice time was 22 minutes. This time is the duration from the initial medication administration until the dual rate supervisor assists with initial maneuvers (biopsy / polypectomy / etc.), or if no maneuvers are performed, until the endoscopist leaves the room. Impression: - No polyps or cancer. - Normal mucosa in the entire examined colon. - Non-bleeding internal hemorrhoids. - The examination was otherwise normal on direct and retroflexion views. - No specimens collected. Recommendation: - Discharge patient to home. - High fiber diet. - Continue present medications. - Repeat colonoscopy in 10 years for screening purposes. Procedure Code(s): --- Professional --- 16415, Colonoscopy, flexible; diagnostic, including collection of specimen(s) by brushing or washing, when performed (separate procedure) G0500, Moderate sedation services provided by the same physician or other qualified health career development manager performing a gastrointestinal endoscopic service that sedation supports, requiring the presence of an independent trained observer to assist in the monitoring of the patient's level of consciousness and physiological status; initial 15 minutes of intra-service time; patient age 5 years or older (additional time may be reported with 43337, as appropriate) Diagnosis Code(s): --- Professional --- Z12.11, Encounter for screening for malignant neoplasm of colon K64.8, Other hemorrhoids K64.4, Residual hemorrhoidal skin tags CPT copyright 2021 [employer]. All rights reserved. The codes documented in this report are preliminary and upon aboriginal education worker coordinator review may be revised to meet current compliance requirements. Connor Burleson MD 02/11/2024 4:23:29 PM Number of Addenda: 0 Note Initiated On: 02/11/2024 3:42 PM Endoscopy Report Cyndi Quick PORCELAIN WAXER, MEDICAL BILLING ASSISTANT PN GI PROCEDUR E ORDERABLES PN PROVATION * Urine POCT (Unit Collect & Test) (02/11/2024 3:18 PM CDT) Urine Test - POC Negative Negative POCT Control Line Present, Clear Background - Internal control Yes POCT Cartridge Lot# [id number] POCT Urine 02/11/2024 3:18 PM CDT Connor Burleson MD ET POINT OF CARE COLEMAN T ENTER/EDIT ORDERABLES POCT documented in this encounter Visit Diagnoses Diagnosis Screen for colon cancer- Primary Special screening for malignant neoplasms, colon Screening for colon cancer Special screening for malignant neoplasms, colon documented in this encounter Administered Medications Inactive Administered Medications - up to 3 most recent administrations Medication Order MAR Action Action Date Dose Rate Site fentaNYL (SUBLIMAZE) 50 MCG/ML injection - ADS Override Pull Starting on Fri02/11/24 at 1553, Until Fri02/11/24 at 1607, For 1 dose, Samara Rangel: cabinet override fentaNYL (SUBLIMAZE) injection 25-100 mcg 25-100 mcg, Intravenous, PRN, Pain, moderate sedation, Starting on Fri02/11/24 at 1456, Until Fri03/03/24 at 0203, Administer in 25-100 mcg increments as directed by endoscopy procedure MD up to a total of 200 mcg. Given 02/11/2024 4:07 PM CDT 125 mcg midazolam (VERSED) 1 MG/1ML injection - ADS Override Pull Starting on Fri02/11/24 at 1553, Until Fri02/11/24 at 1607, For 1 dose, Samara Rangel: cabinet override midazolam (VERSED) injection 0.5-2 mg 0.5-2 mg, Intravenous, PRN, Sedation, Starting on Fri02/11/24 at 1456, Until Fri03/03/24 at 0203, Administer in 0.5 - 2 mg increments as directed by endoscopy procedure MD up to a total of 6 mg Given 02/11/2024 4:07 PM CDT 5 mg ondansetron (ZOFRAN) injection 4 mg 4 mg, Intravenous, PRN, Nausea, Vomiting, Starting on Fri02/11/24 at 1456, Until Fri03/03/24 at 0203 Given 02/11/2024 3:17 PM CDT 4 mg documented in this encounter Care Teams Dean Of [facility] Relationship Specialty Start Date End Date Bridget Rios, [employer]AXER, MEDICAL BILLING ASSISTANT PCP - General 05/30/16 documented as of this encounter
--- OUTSIDE RECORDS SUMMARY | 2024-04-01 22:08 | XMS_ITS | Continuity of Care Document ---
Author Name [facility] Organization [facility] Care Team Providers Care Warrant Server Name Role Phone [facility] Unavailable Unavailable Medications Combined list of outpatient medications from Department of Defense and Veterans Affairs facilities.Medications provided include 1) outpatient medications from the last 15 months, and 2) patient-reported medications. Medication Details Route Status Patient Instructions Prescription Expires Prescription Number Last Dispense Date Ordering Provider Order Date Order Qty Source BUPROPION XL (bupropion HCl), 150 MG, TAB ER 24H, ORAL, [facility]UPIN PHARMACEU, 90 ea. BOTTLE Active [id number] 3 2022 90 Pharmac y Data Transac tion Service Facilit y BUPROPION XL (bupropion HCl), 150 MG, TAB ER 24H, ORAL, [facility] PHARM[facility], 90 ea. BOTTLE Active [id number] 4 2023 90 Pharmac y Data Transac tion Service Facilit y CLINDAMYCIN PHOSPHATE (clindamyci n phosphate), 1 %, LOTION, TOPICAL, ENCUBE ETHICALS, 60 ml BOTTLE Active [id number] 4 2023 60 Pharmac y Data Transac tion Service Facilit y CLINDAMYCIN PHOSPHATE (clindamyci n phosphate), 1 %, LOTION, TOPICAL, ENCUBE ETHICALS, 60 ml BOTTLE Active [id number] 4 2023 60 Pharmac y Data Transac tion Service Facilit y CLINDAMYCIN PHOSPHATE (clindamyci n phosphate), 1 %, LOTION, TOPICAL, ENCUBE ETHICALS, 60 ml BOTTLE Active [id number] 2023 60 Pharmac y Data Transac tion Service Facilit y CLINDAMYCIN PHOSPHATE (clindamyci n phosphate), 1 %, LOTION, TOPICAL, ENCUBE ETHICALS, 60 ml BOTTLE Active [id number] 2023 60 Pharmac y Data Transac tion Service Facilit y DROSPIRENON E-ETHINYL ESTRADIOL (ethinyl estradiol/d rospirenone ), 0.02-3(28), TABLET, ORAL, [employer] PHARMA, 28 ea. BLIST PACK Active [id number] 4 2023 84 Pharmac y Data Transac tion Service Facilit y DROSPIRENON E-ETHINYL ESTRADIOL (ethinyl estradiol/d rospirenone ), 0.02-3(28), TABLET, ORAL, [employer] PHARMA, 28 ea. BLIST PACK Active [id number] 4 2023 84 Pharmac y Data Transac tion Service Facilit y FLUCONAZOLE (FLUCONAZOL E), 150 MG, TABLET, ORAL, '[facility], 12 ea. BLIST PACK Cancele d [id number] : 2023 0 Pharmac y Data Transac tion Service Facilit y ONDANSETRON HCL (ONDANSETRO N HCL), 4MG, TABLET, ORAL, [employer] PHARM, 30 ea. BOTTLE Cancele d [id number] : 2023 0 Pharmac y Data Transac tion Service Facilit y ONDANSETRON HCL (ondansetro n HCl), 8 MG, TABLET, ORAL, [facility], 30 ea. BOTTLE Active [id number] 2023 30 Pharmac y Data Transac tion Service Facilit y ONDANSETRON HCL (ondansetro n HCl), 8 MG, TABLET, ORAL, [facility], 30 ea. BOTTLE Active [id number] 2023 30 Pharmac y Data Transac tion Service Facilit y RIZATRIPTAN (rizatripta n benzoate), 10 MG, TABLET, ORAL, [employer] 18 ea. BLIST PACK Active [id number] 2023 9 Pharmac y Data Transac tion Service Facilit y RIZATRIPTAN (RIZATRIPTA N BENZOATE), 5 MG, TABLET, ORAL, [employer] [facility], 12 ea. BLIST PACK Active [id number] 2023 10 Pharmac y Data Transac tion Service Facilit y RIZATRIPTAN (RIZATRIPTA N BENZOATE), 5 MG, TABLET, ORAL, [employer] [facility], 12 ea. BLIST PACK Active [id number] 2023 30 Pharmac y Data Transac tion Service Facilit y SPIRONOLACT ONE (spironolac tone), 100 MG, TABLET, ORAL, [facility], 100 ea. BOTTLE Active [id number] 2023 90 Pharmac y Data Transac tion Service Facilit y SPIRONOLACT ONE (SPIRONOLAC TONE), 50 MG, TABLET, ORAL, AMNEAL PHARMACE, 100 ea. BOTTLE Cancele d [id number] : 2023 0 Pharmac y Data Transac tion Service Facilit y SPIRONOLACT ONE (SPIRONOLAC TONE), 50 MG, TABLET, ORAL, AMNEAL PHARMACE, 100 ea. BOTTLE Active [id number] 2022 90 Pharmac y Data Transac tion Service Facilit y SPIRONOLACT ONE (spironolac tone), 50 MG, TABLET, ORAL, [facility], 100 ea. BOTTLE Cancele d [id number] : 2022 0 Pharmac y Data Transac tion Service Facilit y SPIRONOLACT ONE (spironolac tone), 50 MG, TABLET, ORAL, [facility], 100 ea. BOTTLE Active [id number] 2023 90 Pharmac y Data Transac tion Service Facilit y SUTAB (sodium sulfate/pot assium chloride/ma gnesium sulfate), 1.479 G, TABLET, ORAL, BRAINTREE/S IAN, 24 ea. BOX Cancele d [id number] : 2023 0 Pharmac y Data Transac tion Service Facilit y SUTAB (sodium sulfate/pot assium chloride/ma gnesium sulfate), 1.479 G, TABLET, ORAL, BRAINTREE/S IAN, 24 ea. BOX Active [id number] 2023 24 Pharmac y Data Transac tion Service Facilit y Immunizations Combined list of available immunizations from the Department of Defense and Veterans Affairs facilities. Immunization Series Date Given Administered By Site Reaction Lot Number CVX Code Drug Crozer Status Comments Source Influenza, seasonal, injectable, preservative free 2014 RACHELL, () Not Given Influenza , seasonal, injectabl e, preservat francois free DoD Influenza, seasonal, injectable, preservative free 2013 SUE LOVETT () Not Given Influenza , seasonal, injectabl e, preservat francois free [facility] influenza virus vaccine, split virus (incl. purified surface antigen)-reti red CODE 1 2009 Unknown, Provider [id number] [facility] (SK) complet ed influenza virus vaccine, split virus (incl. purified surface antigen)- retired CODE DoD typhoid Vi capsular polysaccharid e vaccine 1 2009 Unknown, Provider [id number] Sanofi Pasteur ([facility]) complet ed typhoid Vi capsular polysacch aride vaccine DoD tetanus toxoid, reduced diphtheria toxoid, and acellular pertu is vaccine, adsorbed 1 2008 Unknown, Provider [id number] 115 Sanofi Pasteur ([facility]) complet ed tetanus toxoid, reduced diphtheri a toxoid, and acellular pertussis vaccine, adsorbed DoD Novel influenza-H1N 1-09, injectable 1 2008 Unknown, Provider [id number] 127 Sanofi Pasteur ([facility]) complet ed Novel influenza -[id number], injectabl e DoD influenza virus vaccine, whole virus 1 2008 Unknown, Provider 16 () complet ed influenza virus vaccine, whole virus DoD influenza virus vaccine, split virus (incl. purified surface antigen)-reti red CODE 1 2007 Unknown, Provider [id number] 15 [employer] ([facility]) complet ed influenza virus vaccine, split virus (incl. purified surface antigen)- retired CODE DoD influenza virus vaccine, split virus (incl. purified surface antigen)-reti red CODE 1 2007 Unknown, Provider [id number] 15 [employer] ([facility]) complet ed influenza virus vaccine, split virus (incl. purified surface antigen)- retired CODE DoD typhoid vaccine, parenteral, other than acetone-kille d, dried 1 2007 Unknown, Provider [id number] 41 Sanofi Pasteur ([facility]) complet ed typhoid vaccine, parentera l, other than acetone-k illed, dried DoD influenza virus vaccine, whole virus 1 2005 Unknown, Provider [id number] 16 Unknown (UNK) complet ed influenza virus vaccine, whole virus DoD influenza virus vaccine, split virus (incl. purified surface antigen)-reti red CODE 1 2004 Unknown, Provider [id number] 15 Sanofi Pasteur ([facility]) complet ed influenza virus vaccine, split virus (incl. purified surface antigen)- retired CODE DoD typhoid vaccine, parenteral, other than acetone-kille d, dried 1 2004 Unknown, Provider [id number] 41 Sanofi Pasteur ([facility]) complet ed typhoid vaccine, parentera l, other than acetone-k illed, dried DoD influenza virus vaccine, whole virus 1 2003 Unknown, Provider [id number] 16 Sanofi Pasteur ([facility]) complet ed influenza virus vaccine, whole virus DoD anthrax vaccine 6 2003 Unknown, Provider [id number] 24 [facility]) complet ed anthrax vaccine DoD anthrax vaccine 5 2003 Unknown, Provider [id number] 24 [facility] ([facility]) complet ed anthrax vaccine DoD typhoid vaccine, parenteral, other than acetone-kille d, dried 1 2002 Unknown, Provider [id number] 41 Sanofi Pasteur ([facility]) complet ed typhoid vaccine, parentera l, other than acetone-k illed, dried DoD vaccinia (smallpox) vaccine 1 2002 Unknown, Provider [id number] 75 [employer] ([facility]) complet ed vaccinia (smallpox ) vaccine DoD influenza virus vaccine, whole virus 1 2002 Unknown, Provider [id number] 16 [facility] ([facility]) complet ed influenza virus vaccine, whole virus DoD tuberculin skin test; purified protein derivative solution, intradermal 1 2002 Unknown, Provider [id number] 96 Sanofi Pasteur ([facility]) complet ed tuberculi n skin test; purified protein derivativ e solution, intraderm al DoD anthrax vaccine 4 2002 Unknown, Provider [id number] [facility] ([facility]) complet ed anthrax vaccine DoD anthrax vaccine 3 2002 Unknown, Provider [id number] 24 [facility] [place] ([facility]) complet ed anthrax vaccine DoD anthrax vaccine 2 2002 Unknown, Provider [id number] 24 [facility] [place] ([facility]) complet ed anthrax vaccine DoD anthrax vaccine 1 2002 Unknown, Provider [id number] [facility]) complet ed anthrax vaccine DoD meningococcal polysaccharid e vaccine (MPSV4) 1 2002 Unknown, Provider [id number] 32 Sanofi Pasteur ([facility]) complet ed meningoco ccal polysacch aride vaccine (MPSV4) DoD influenza virus vaccine, whole virus 1 2001 Unknown, Provider [id number] 16 Sanofi Pasteur ([facility]) complet ed influenza virus vaccine, whole virus DoD tuberculin skin test; purified protein derivative solution, intradermal 1 2001 Unknown, Provider [id number] 96 Sanofi Pasteur ([facility]) complet ed tuberculi n skin test; purified protein derivativ e solution, intraderm al DoD hepatitis A vaccine, adult dosage 2 2001 Unknown, Provider [id number] 52 Unknown (UNK) complet ed hepatitis A vaccine, adult dosage DoD typhoid vaccine, parenteral, other than acetone-kille d, dried 1 2000 Unknown, Provider [id number] 41 Sanofi Pasteur ([facility]) complet ed typhoid vaccine, parentera l, other than acetone-k illed, dried DoD hepatitis A vaccine, adult dosage 1 2000 Unknown, Provider [id number] [employer] (MSD) complet ed hepatitis A vaccine, adult dosage DoD tuberculin skin test; purified protein derivative solution, intradermal 1 2000 Unknown, Provider [id number] [employer] (CON) complet ed tuberculi n skin test; purified protein derivativ e solution, intraderm al DoD tetanus and diphtheria toxoids, adsorbed, preservative free, for adult use (2 Lf of tetanus toxoid and 2 Lf of diphtheria toxoid) 1 2000 Unknown, Provider [id number] 09 Sanofi Pasteur ([facility]) complet ed tetanus and diphtheri a toxoids, adsorbed, preservat francois free, for adult use (2 Lf of tetanus toxoid and 2 Lf of diphtheri a toxoid) [facility] influenza virus vaccine, whole virus 1 2000 Unknown, Provider [id number] 16 Sanofi Pasteur ([facility]) complet ed influenza virus vaccine, whole virus DoD yellow fever vaccine 1 2000 Unknown, Provider [id number] 37 Sanofi Pasteur ([facility]) complet ed yellow fever vaccine DoD influenza virus vaccine, whole virus 1 1999 Unknown, Provider [id number] 16 Other (OTH) complet ed influenza virus vaccine, whole virus DoD influenza virus vaccine, whole virus 1 1998 Unknown, Provider [id number] 16 [employer] (CON) complet ed influenza virus vaccine, whole virus [facility] trivalent poliovirus vaccine, live, oral 1 1996 Unknown, Provider 02 () complet ed trivalent polioviru s vaccine, live, oral DoD measles, mumps and rubella virus vaccine 1 1996 Unknown, Provider 03 () complet ed measles, mumps and rubella virus vaccine DoD Social History Combined list of available smoking, tobacco, and other social history from Department of Defense and Veterans Affairs facilities. Social History Type Response Date Comment [facility] e This section is an empty social history section. DoD
--- OUTSIDE RECORDS SUMMARY | 2024-04-01 22:08 | XMS_ITS | Encounter Summary ---
Author Organization [facility] Address [address] [address] Care Team Providers Care Slag Wheeler Name Role Phone Bridget Rios APRN, AEROSOL SUPERVISOR Primary Care Provider Bharati vailable Reason for Visit * Reason Comments Refill drospirenone-ethinyl estradiol (ROLANDO) 3-0.02 MG tablet [Pharmacy Med Name: DROSPIRENONE/ETHY EST 3/0.02MG T 28] Encounter Details Date Type Department Care Team (Late st Contact Info) Description 2024 Refill [facility] [id number] [address] Marin Lenz APRN, AEROSOL SUPERVISOR [address] [address] Refill (drospirenone-ethinyl estradiol (ROLANDO) 3-0.02 MG tablet [Pharmacy Med Name: DROSPIRENONE/ETHY EST 3/0.02MG T 28]) Social History Tobacco Use Types Packs/Day Years [...] PM CDT documented as of this encounter Nursing Notes * Vangie Powell - 2024 10:54 AM CDT Requested Prescriptions Signed Prescriptions Disp Refills drospirenone-ethinyl estradiol (ROLANDO) 3-0.02 MG tablet 90 Tablet 0 Sig: take 1 tablet by mouth daily Authorizing Provider: MARIN LENZ Ordering User: VANGIE POWELL LQV: 05/13/2023. Medication refilled per SO. * Beny Amaro Xrwcomm - 2024 8:04 AM CDT drospirenone-ethinyl estradiol (ROLANDO) 3-0.02 MG tablet [Pharmacy Med Name: DROSPIRENONE/ETHY EST 3/0.02MG T 28] Miscellaneous - 12 Month Visit 1 -> The request contains a note from the pharmacy. -> Refill x 3 months (until due for an office visit) Last qualifying visit: 05/12/2023 (in [facility] with MARIN LENZ) Next scheduled visit: None Last ordered by MARIN LENZ: 06/13/2023 (249 days ago) QTY: 84, Refills: 3, Sig: take 1 tablet by mouth daily. (changed but equivalent) [employer] Embedded Refills, Reference: [id number], 2024 8:04:38 AM CDT, Pool: CARLOS ECHOLSDaysi REFILL ([id number]) documented in this encounter Plan of Treatment Not on file documented as of this encounter Visit Diagnoses Not on filedocumented in this encounter Care Teams Slag Wheeler Relationship Specialty Start Date End Date Bridget Rios, MARY, AEROSOL SUPERVISOR PCP - General 05/30/16 documented as of this encounter
--- OUTSIDE RECORDS SUMMARY | 2024-04-01 22:08 | XMS_ITS | Clinical Summary ---
Author Organization [facility] Address [address] [place] [address] Care Team Providers Care Manager Casino Name Role Phone [facility] [place] Primary Care Provider Kimberley Brunson MD Unavailable [phone] Desean Hernandez MD Unavailable [phone] Allergies Active Allergy Reactions Criticality Noted Date Comments Chicken-Derived Products (Egg) GI Disturbance 09/15/2019 Egg sensitivities on allergy testing. Morphine Nausea and Vomiting Low 01/27/2019 Oxycodone-Acetamino phen Nausea and Vomiting Low 06/15/2019 Medications Medication Sig Dispensed Refills Start Date End Date Status tretinoin (RETIN-A) 0.025 % cream Apply topically At Bedtime Pt to initiate during acne breakout Active spironolactone (ALDACTONE) 50 MG tablet Take 50 mg by mouth daily Active HYDROcodone-aceta minophen (NORCO) 5-325 MG tabletIndications :Renal colic on left side Take 1-2 tablets by mouth every 4 hours as needed for moderate to severe pain 3 tablet 06/15/2019 Active Additional Information Patient not taking.Reported on 09/15/2019 docusate sodium (COLACE) 100 MG capsule Take 1 capsule (100 mg) by mouth 2 times daily 60 capsule 07/30/2020 Active buPROPion (WELLBUTRIN XL) 150 MG 24 hr tablet Take 1 tablet by mouth every morning 02/12/2022 Active clindamycin (CLEOCIN T) 1 % external lotion Apply topically to affected area(s) two times daily. 04/09/2023 Active drospirenone-ethi nyl estradiol (ROLANDO) 3-0.02 MG tablet Take 1 tablet by mouth daily 06/13/2023 06/12/2024 Active LORazepam (ATIVAN) 0.5 MG tablet Take 0.5 mg by mouth 03/26/2023 Active ondansetron (ZOFRAN ODT) [address] 4 mg under the tongue 03/26/2023 Active phentermine (ADIPEX-P) 37.5 MG tablet Take 18.75 mg by mouth 07/03/2023 Active rizatriptan (MAXALT) 5 MG tablet TAKE 1 TABLET BY MOUTH EVERY 2 HOURS IF NEEDED FOR MIGRAINE. GIVA AT MINIMUM 2 HOURS APART. MAX OF 30MG PER 24 HOURS. Active triamcinolone (KENALOG) 0.1 % external ointment Apply topically to affected area(s) 3 times daily if needed (Itching). 03/26/2023 Active Active Problems Problem Noted Date Diagnosed Date Renal colic 05/19/2019 Renal colic on left side 05/19/2019 Urolithiasis 06/20/2016 Family History Relation Status Comments Father Alive Mother Alive Social History Tobacco Use Types Packs/Day Years Used Date Smoking Tobacco: Never Smokeless Tobacco: Never PHQ-2 Answer Date Recorded PHQ-2 Score 0 07/14/2023 Adolescent Education Answer Date Record ed Getting School Help Needed Not on file 06/27 Sex and Gender Information Value Date Recorded Sex Assigned at Not on file Gender Identity Not on file Sexual Orientation Not on file Last Filed Vital Signs Vital Sign Reading Time Taken Comments Blood Pressure 115/83 05/07/2021 3:30 PM CDT Pulse 74 05/07/2021 3:30 PM CDT Temperature 36.3 ??C (97.3 ??F) 05/07/2021 10:40 AM C DT Respiratory Rate 16 05/07/2021 10:40 AM CDT Oxygen Saturation 98% 05/07/2021 3:30 PM CDT Inhaled Oxygen Concentration - - Weight 70.3 kg (155 lb) 12/11/2021 2:21 PM CDT Height 161.3 cm (5' 3.5) 12/11/2021 2:21 PM CDT Body Mass Index 27.03 12/11/2021 2:21 PM CDT Plan of Treatment Health Maintenance Due Date Last Done Comments ADVANCE CARE PLANNING 1979 ANNUAL REVIEW OF HM ORDERS 1979 CT COLONOGRAPHY 1979 FIT 1979 FLEX SIG 1979 sDNA (Cologuard) 1979 COLONOSCOPY 1989 COLORECTAL CANCER SCREENING 1989 HIV SCREENING 1994 HEPATITIS C SCREENING 1997 IPV IMMUNIZATION (2 of 3 - Adult catch-up series) 07/27/1997 06/29/1997 HEPATITIS B IMMUNIZATION (1 of 3 - 19+ 3-dose series) 1998 LIPID 2019 COVID-19 Vaccine ( season) 2023 PHQ-2 (once per calendar year) 2023 07/14/2023, 12/11/2021, 12/11/2020, Additional history exists YEARLY PREVENTIVE VISIT 04/09/2024 04/09/20, 11/23/2021, 01/09/2001, Additional history exists GLUCOSE 05/07/2024 05/07/2021, 09/2019, 05/19/2019, Additional history exists INFLUENZA VACCINE (#1) 2024 , 06/28/2019, 07/17/2010, Additional history exists MAMMO SCREENING 05/28/2025 05/28/2023, 11/27, 08/02/2020, Additional history exists PAP 05/12/2026 05/12/2023, 05/12/2023 DTAP/TDAP/TD IMMUNIZATION (6 - Td or Tdap) 10/08/2029 10/08/2019, 11/18/2014, 07/31/2009, Additional history exists MENINGITIS IMMUNIZATION Aged Out 11/25/2002 No l onger eligible based on patient's age to complete this topic HPV IMMUNIZATION Aged Out No longer e ligible based on patient's age to complete this topic Pneumococcal Vaccine: Pediatrics (0 to 5 Years) and At-Risk Patients (6 to 64 Years) Aged Out No longer eligible based on patient's age to complete this topic RSV MONOCLONAL ANTIBODY Aged Out No l onger eligible based on patient's age to complete this topic Procedures Procedure Name Priority Date/Time Associated Diagnosis Comments MA SCREENING WITH IMPLANTS BILATERAL W/ TIFFANIE Routine 12/14/2021 9:43 AM CDT BASIC METABOLIC PANEL STAT 05/07/2021 11:42 AM CDT from Last 3 Months or Most Recently Relevant to Health Maintenance Results * Basic metabolic panel (05/07/2021 11:42 AM CDT) Sodium 135 133 - 144 mmol/L 05/07/2021 12:16 PM CDT LABORATORY Potassium 4.0 3.4 - 5.3 mmol/L 05/07/2021 12:16 PM CDT LABORATORY Chloride 105 94 - 109 mmol/L 05/07/2021 12:16 PM CDT LABORATORY Carbon Dioxide (CO2) 25 20 - 32 mmol/L 05/07/2021 12:16 PM CDT LABORATORY Anion Gap 5 3 - 14 mmol/L 05/07/2021 12:16 PM CDT LABORATORY Urea Nitrogen 14 7 - 30 mg/dL 05/07/2021 12:16 PM CDT LABORATORY Creatinine 0.68 0.52 - 1.04 mg/dL 05/07/2021 12:16 PM CDT LABORATORY Calcium 8.8 8.5 - 10.1 mg/dL 05/07/2021 12:16 PM CDT LABORATORY Glucose 97 70 - 99 mg/dL 05/07/2021 12:16 PM CDT LABORATORY GFR Estimate >90 >60 mL/min/1.7 3m2 05/07/2021 12:16 PM CDT LABORATORY Comment:As of April 08, 2021, eGFR is calculated by the CKD-EPI creatinine equation, without race adjustment. eGFR can be influenced by muscle mass, exercise, and diet. The reported eGFR is an estimation only and is only applicable if the renal function is stable. Blood STRUCTURE OF LEFT UPPER LIMB / Unknown Venipuncture / Unknown 05/07/2021 11:42 AM CDT 05/07/2021 11:56 AM CDT Uzair Alejandra MD LAB - BLO OD ORDERABLES [facility] [address] (1st floor, no room number) [place] [address], [facility] [phone] from Last 3 Months or Most Recently Relevant to Health Maintenance Advance Directives For more information, please contact: [phone] * Full Code (Latest Code Status on File) Date Activated Date Inactivated Comments 05/19/2019 2:55 PM 06/15/2019 12:13 PM Question Answer Comments Code status determined by: Discussion with mary nt/legal decision maker * Full Code Date Activated Date Inactivated Comments 05/19/2019 9:51 AM 05/19/2019 2:55 PM Question Answer Comments Code status determined by: Discussion with mary nt/legal decision maker * Full Code Date Activated Date Inactivated Comments 06/20/2016 11:36 AM 01/27/2019 8:42 PM * Full Code Date Activated Date Inactivated Comments 06/20/2016 5:56 AM 06/20/2016 11:36 AM Care Teams Manager Casino Relationship Specialty Start Date End Date [facility] [place] [address] [place] [address] PCP - General 01/27/19 [place] [address] [place] [address] Family Medicine 05/07/21 Desean Hernandez MD [address] [place] [address] Assigned Surgical Provider 07/19/23
--- OUTSIDE RECORDS SUMMARY | 2024-04-01 22:08 | XMS_ITS | Encounter Summary ---
Author Organization [facility] Address [address] [facility] [place] [address] Care Team Providers Care Painter Spray Name Role Phone Clinic, [facility] Primary Care Provider Kimberley Brunson MD Unavailable [phone] Desean Hernandez MD Unavailable [phone] Reason for Visit * Reason Onset Date Comments Orders 06/26/2023 Patient needs im aging done before her yearly follow up appointment. Encounter Details Date Type Department Care Team (Late st Contact Info) Description 06/26/2023 [facility] [address] [place] [address] Desean Hernandez MD [address] [place] [address] Orders (Patient needs imaging done before her yearly follow up appointment.) Social History Tobacco Use Types Packs/Day Years Used Date Smoking Tobacco: Never Smokeless Tobacco: Never PHQ-2 Answer Date Recorded PHQ-2 Score 0 12/11/2021 Adolescent Education Answer Date Record ed Getting School Help Needed Not on file 06/27 Sex and Gender Information Value Date Recorded Sex Assigned at Not on file Gender Identity Not on file Sexual Orientation Not on file documented as of this encounter Miscellaneous Notes * Telephone Encounter - Susan Sumner LPN - 07/02/2023 10:20 AM CDT Order placed and patient informed * Telephone Encounter - Kimberley Fitzpatrick - 07/02/2023 10:13 AM CDT [facility] Phone Message May a detailed message be left on voicemail: yes Reason for Call: Other: Pt called back again looking for kub orders so she can schedule. Pt doing kub early becuase of possible stone/ flank pain. Please review. Thank you. Action Taken: Message routed to: [facility] Travel Screening: Not Applicable * Telephone Encounter - Scott Salamanca - 06/26/2023 4:53 PM CDT [facility] Phone Message May a detailed message be left on voicemail: no Reason for Call: Order(s): Other: Reason for requested: Imaging before yearly follow up appointment. Date needed: N/A Provider name: Dr Hernandez Action Taken: Other: [facility] Travel Screening: Not Applicable documented in this encounter Plan of Treatment Not on file documented as of this encounter Visit Diagnoses Not on filedocumented in this encounter Care Teams Painter Spray Relationship Specialty Start Date End Date [facility], [facility] [address] [place] [address] PCP - General 01/27/19 [place] [address] [place] [address] Family Medicine 05/07/21 Desean Hernandez MD [address] [place] [address] Assigned Surgical Provider 07/19/23 documented as of this encounter
--- OUTSIDE RECORDS SUMMARY | 2024-04-01 22:08 | XMS_ITS | Encounter Summary ---
Author Organization [facility] Address [address] [place] [address] Care Team Providers Care Last Model Department Supervisor Name Role Phone Bridget Rios APRN, CNP Primary Care Provider Bharati vailable Encounter Details Date Type Department Care Team (Late st Contact Info) Description 02/04/2024 Notes/Orders Gastroenterology at [facility] at [address] [facility]. [place], [place] [address] [place] [address] [place] [address] [address] [place], [place] [id number] Social History Tobacco Use Types Packs/Day Years [...] PM CDT documented as of this encounter Plan of Treatment Not on file documented as of this encounter Visit Diagnoses Not on filedocumented in this encounter Care Teams Last Model Department Supervisor Relationship Specialty Start Date End Date Bridget Rios, MARY, SOFTWARE DESIGN MANAGER PCP - General 05/30/16 documented as of this encounter
--- OUTSIDE RECORDS SUMMARY | 2024-04-01 22:08 | XMS_ITS | Clinical Summary ---
Author Organization [employer] [employer] [facility] Address [address] [place] [address] Care Team Providers Care Supervisor Smoke Control Name Role Phone Bridget Rios APRN, CNP Primary Care Provider Bharati vailable Source Comments You are receiving this document as you are listed as the primary care provider,follow-up provider, or the patient has been referred to you for consultation.This is in compliance with the Medicare and[facility] EHR Incentive Program,which states Providers who transition their patient to another setting of careor provider of care or refers their patient to another provider of care shouldprovide summary care record for each transition of care or referral. [facility] Allergies Active Allergy Reactions Criticality Noted Date Comments Morphine And Codeine Nausea And Vomiting Low 2018 Medications Medication Sig Dispensed Refills Start Date End Date Status LORazepam (ATIVAN) 0.5 MG tablet Take 1 Tablet (0.5 mg) by mouth. 10/24/2017 Active ALPRAZolam (XANAX) 0.25 MG tablet Take 1 Tablet (0.25 mg) by mouth. 10/24/2017 Active imiquimod (ALDARA) 5 % creamIndications:G enital warts Apply topically three times a week. 24 Each 1 08/17/2018 Active Additional Information Patient not taking.Reported on 06/11/2023 triamcinolone acetonide (KENALOG) 0.1 % ointmentIndication s:Hemorrhoids, unspecified hemorrhoid type Apply to affected area twice daily as needed. 30 g 11/23/2021 Active HYDROQUINONE No. 01 Apply topically to face at bedtime for 4 to 6 months 30 g 1 01/28/2022 Active Additional Information Patient not taking.Reported on 06/11/2023 buPROPion (WELLBUTRIN XL) 150 MG 24 hour release tablet Take 1 Tablet (150 mg) by mouth every morning. 90 Tablet 02/12/2022 Active OMEPRAZOLE OR Active tretinoin (RETIN-A) 0.05 % cream Apply pea-size amount to entire face at bedtime. 45 g 3 06/11/2023 Active doxycycline monohydrate (MONODOX) 100 MG capsule Take 1 Capsule (100 mg) by mouth two times a day. 60 Capsule 06/11/2023 Active Additional Information Patient not taking.Reported on 02/04/2024 Phentermine HCl (ADIPEX-P) 37.5 MG tablet Take 0.5 Tablets (18.75 mg) by mouth two times a day. Active ondansetron (ZOFRAN) 8 MG tablet Take 1 Tablet (8 mg) by mouth three times a day. 07/25/2023 Active rizatriptan (MAXALT) 10 MG tablet Take 1 Tablet (10 mg) by mouth. 09/05/2023 Active clindamycin (CLEOCIN T) 1 % lotion APPLY TOPICALLY TO THE AFFECTED AREA IN THE MORNING FOR ACNE 60 mL 3 11/25/2023 Active spironolactone (ALDACTONE) 100 MG tablet Take 1 Tablet (100 mg) by mouth daily. 90 Tablet 3 02/04/2024 02/03/2025 Active drospirenone-ethin yl estradiol (ROLANDO) 3-0.02 MG tablet take 1 tablet by mouth daily 90 Tablet 2024 Active Active Problems Problem Noted Date Diagnosed Date Migraine with aura, not intr actable, without status migrainosus 04/09/2023 Generalized anxiety disorder 04/30/2021 Situational anxiety 04/30/2021 Renal colic 05/19/2019 Panic attack 10/26/2017 Urolithiasis 06/20/2016 Routine health maintenance 07/09/2012 Female infertility 07/09/2012 Overview: History of IVF ; Female infertility of unspecified origin Congenital medullary sponge kidney 05/05/2006 Overview: LW Onset: [id number] ; Medullary Sponge Kidney Other acne 04/10/2006 Overview: LW Onset: [id number] ; Acne Vulgaris Resolved Problems Problem Noted Date Diagnosed Date Resolved Date Encounter for counseling reg arding initiation of other contraceptive measure 03/06/2005 6 Overview: LW Onset: ; Contraception Management Prescription Encounters Date Type Department Care Team Description 2024 Refill [facility] [address] [facility], [address] [place] [id number] Sheron Lenz, SOLAR ENERGY TECHNICIAN, GROUND WORKER Refill (drospirenone-ethi nyl estradiol (ROLANDO) 3-0.02 MG tablet [Pharmacy Med Name: DROSPIRENONE/ETHY EST 3/0.02MG T 28]) 02/11/2024 2:55 PM CDT - 02/11/2024 11:59 PM CDT Hospital Encounter [facility] [address] [place] [address] Connor Burleson MD Screen for colon cancer (Primary Dx); Screening for colon cancer Discharge Disposition: Home 02/04/2024 1:30 PM CDT Office Visit [facility] [address] [place], [place] [address] Marek Groves MD Acne, unspecified acne type (Primary Dx); High risk medication use 02/04/2024 Notes/Orders Gastroenterology at [facility] at [address] [place] [address] Connor Burleson MD from Last 3 Months Immunizations Name Administration Dates Next Due Anthrax 07/21/2004, 4,06/14/2003,2002,12/11/2002,11/25/2002 Flu Vac (3+ yrs) 07/17/2010,06/26/2009 Flu Vac Preserv Free (3+yrs) 09/27/2003 HepA Adult (19+ yrs) 03/02/2002,07/18/2001 Influenza Y8C6-00 08/08/2009 Influenza IIV4 (Quadrivalent ) 0.5mL (99375) 06/21/2020,06/28/2019 MPSV4 (Menomune) 11/25/2002 OPV, Trivalent (Orimune or tOPV) 06/29/1997 TDAP (BOOSTRIX) 11/18/2014 Td 09/27/2003,07/16/2001 Td (7+ yrs) 10/08/2019 Tdap 07/31/2009 Typhoid (Typhim Vi, IM) 11/18/2009 Typhoid, Parenteral Heat-Phe nol Inactivated 10/10/2007,08/18/2005,07/21/2003,2000 Vaccinia (Smallpox) 07/21/2003 YF (Yellow Fever) 07/16/2001 Family History Medical History Relation Name Comments Cancer Father Diabetes Father Hypertension Father Alcohol Abuse Mother Depression Mother High Cholesterol Mother Hypertension Mother Obesity Mother Obstructive Sleep Apnea Mother Stroke Mother Thyroid Disorder Mother High Cholesterol Brother Hypertension Brother Cancer Maternal Grandmother Diabetes Paternal Grandfather Cancer, Breast Paternal Grandmother Cancer, Colon Negative Family History Cancer, Ovary Negative Family History Relation Name Status Comments Father Alive Mother Alive Brother Alive Maternal Grandfather Alive Maternal Grandmother Paternal Grandfather Paternal Grandmother Social History Tobacco Use Types Packs/Day Years [...] Orientation Straight 04/29/2022 1: 11 PM CDT Last Filed Vital Signs Vital Sign Reading Time Taken Comments Blood Pressure 124/76 02/11/2024 4:35 PM CDT Pulse 93 02/11/2024 4:35 PM CDT Temperature 36.4 ??C (97.5 ??F) 05/23/2006 1:00 PM CD T C: 36.4 C Respiratory Rate 16 02/11/2024 4:35 PM CDT Oxygen Saturation 99% 02/11/2024 4:35 PM CDT Inhaled Oxygen Concentration - - Weight 72.6 kg (160 lb) 02/11/2024 3:04 PM CDT Height 160 cm (5' 3) 02/11/2024 3:04 PM CDT Body Mass Index 28.34 02/11/2024 3:04 PM CDT Plan of Treatment Health Maintenance Due Date Last Done Comments HepB (1) 1998 Adult Preventive Visit 11/23/2022 2, 01/09/2001, 11/30/1999 Mammogram 12/14/2022 12/14/2021, 11/27, 08/02/2020, Additional history exists COVID-19 Vaccine ( season) 2023 Colon Cancer Screening Plan Due 02/12/2024 02/11/2024 Influenza (Season Ended) 2024 020, 06/28/2019, 07/17/2010, Additional history exists Diabetes Screening- (based on age and BMI) 04/09/2026 04/09/2023, 11/23/2021, 09/17/2019 Cholesterol 11/23/2026 11/23/2021, 08/30, 05/05/2006, Additional history exists Cervical Cancer Screening 05/12/20282022, 08/17/2018, 11/18/2014, Additional history exists Zoster/Shingles (1 of 2) 2029 DTaP/Tdap/Td (4 - Tdap) 10/08/2029 10/08/19, 11/18/2014, 07/31/2009, Additional history exists IPV (Polio) Aged Out 06/29/1997 No longer eligi ble based on patient's age to complete this topic HepA Completed 03/02/2002, 07/18/2001 MCV4 Aged Out 11/25/2002 No longer eligi ble based on patient's age to complete this topic Hep C Screening (Preventive Services) Completed 05/05/2006 HIV Screening (Preventive Services) Completed 12/22/2008, 05/05/2006 HPV Vaccine Aged Out No longer eligi ble based on patient's age to complete this topic Hib Aged Out No longer eligi ble based on patient's age to complete this topic Pneumococcal Aged Out No longer eligi ble based on patient's age to complete this topic Procedures Procedure Name Priority Date/Time Associated Diagnosis Comments ENDOSCOPY, COLON, SCREENING/DIAGNOSTI C Routine 02/11/2024 3:42 PM CDT Screening for colon cancer POCT URINE Routine 02/11/2024 3:18 PM CDT Screen for colon cancer PAP TEST Routine 05/12/2023 1:35 PM CDT Screening for malignant neoplasm of cervix HGB A1C (EXTERNAL RESULT) Routine 04/09/2023 12:29 PM CDT MM MAMMOGRAM SCREENING BILAT W IMPLANTS W 3D KARTHIK W CAD Routine 12/14/2021 9:43 AM CDT Visit for screening mammogram Breast screening LIPID PANEL & DIRECT LDL (IF NEEDED) Routine 11/23/2021 10:31 AM PHOTOGRAPHY MANAGER Screening for lipoid disorders HIV ANTIBODY Routine 05/05/2006 9:12 AM CDT HEPATITIS C ANTIBODY, WITH REFLEX Routine 05/05/2006 9:12 AM CDT from Last 3 Months or Most Recently Relevant to Health Maintenance Results * Endoscopy, colon, diagnostic (02/11/2024 3:42 PM CDT) 02/11/2024 3:42 PM CDT Narrative PN PROVATION - 02/11/2024 3:42 PM CDT Patient Name: Luis Steven Procedure Date: 02/11/2024 3:42 PM Date of : 1980 Admit Type: Outpatient Age: 43 Note Status: Finalized Attending MD: Connor Burleson MD, Procedure: ? Colonoscopy Indications: ? Screening for colorectal malignant ? neoplasm, This is the patient's ? first colonoscopy Providers: ? Connor Burleson MD, Samara Simmons MD: ?Cyndi Dykes Medicines: ? Midazolam 5 mg IV, Fentanyl 125 ? micrograms IV, CO2 Complications: ? No immediate complications. ? Estimated blood loss: None. Procedure: ? After I obtained informed consent, ? the scope was passed under direct ? vision. Throughout the procedure, ? the patient's blood pressure, ? pulse, and oxygen saturations were ? monitored continuously. The ? [id number] was introduced through ? the anus and [...] the initial medication ? administration until the supervisor ship maintenance services assists with ? initial maneuvers (biopsy / [...] Procedure Code(s): ? --- Professional --- ? 70735, Colonoscopy, flexible; ? diagnostic, including collection of [...] (additional time may ? be reported with 39887, as ? appropriate) Diagnosis Code(s): ? --- Professional --- ? Z12.11, Encounter for screening for ? malignant neoplasm of colon ? K64.8, Other hemorrhoids ? K64.4, Residual hemorrhoidal skin ? tags CPT copyright 2021 [employer]. All rights reserved. The codes documented in this report are preliminary and upon door framer review may be revised to meet current compliance requirements. Connor Burleson MD 02/11/2024 4:23:29 PM Number of Addenda: 0 Note Initiated On: 02/11/2024 3:42 PM ? Endoscopy Report Procedure Note Connor Burleson MD - 02/11/2024 Patient Name: Luis Steven Procedure Date: 02/11/2024 3:42 PM Date [...] and oxygen saturations were monitored continuously. The [id number] was introduced through the anus and advanced [...] from the initial medication administration until the supervisor ship maintenance services assists with initial maneuvers (biopsy / polypectomy [...] screening purposes. Procedure Code(s): --- Professional --- 04852, Colonoscopy, flexible; diagnostic, including collection of specimen(s) by brushing or washing, when performed (separate procedure) G0500, Moderate sedation services provided by the same physician or other qualified health healthcare architect performing a gastrointestinal endoscopic service that sedation supports, requiring the presence of an independent trained observer to assist in the monitoring of the patient's level of consciousness and physiological status; initial 15 minutes of intra-service time; patient age 5 years or older (additional time may be reported with [address], as appropriate) Diagnosis Code(s): --- Professional --- Z12.11, Encounter for screening for malignant neoplasm of colon K64.8, Other hemorrhoids K64.4, Residual hemorrhoidal skin tags CPT copyright 2021 [employer]. All rights reserved. The codes documented in this report are preliminary and upon door framer review may be revised to meet current compliance requirements. Connor Burleson MD 02/11/2024 4:23:29 PM Number of Addenda: 0 Note Initiated On: 02/11/2024 3:42 PM Endoscopy Report Cyndi Quick SOLAR ENERGY TECHNICIAN, GROUND WORKER PN GI PROCEDUR E ORDERABLES Performing Organization Address City/[facility] Co de Phone Number PN PROVATION * Urine POCT (Unit Collect & Test) (02/11/2024 3:18 PM CDT) Urine Test - POC Negative Negative POCT Control Line Present, Clear Background - Internal control Yes POCT Cartridge Lot# [id number] POCT Urine 02/11/2024 3:18 PM CDT Connor Burleson MD ET POINT OF CARE COLEMAN T ENTER/EDIT ORDERABLES Performing Organization Address City/[facility] Co de Phone Number POCT * PAP Test (05/12/2023 1:35 PM CDT) Case Report Pap ? Case: [id number] ? Authorizing Provider: ??Yoanna, Sheron Jones APRN, ?? Collected: ? 05/12/2023 1335 ? GROUND WORKER ? Ordering Location: ? [facility] ? Received: ?05/12/2023 1554 ? Services-[facility] ? First Screen: ?Edwina Cyr CT (ASCP) ? Specimen: ?Pap Test, Routine, Cervix/Endocervix ? 05/23/2023 11:54 AM CDT [facility] Pap Specimen Adequacy Satisfactory for evaluation, endocervical/anderson sformation zone component absent. 05/23/2023 11:54 AM CDT [facility] Pap Interpretation (NILM) Negative for intraepithelial lesion or malignancy. 05/23/2023 11:54 AM CDT [facility] Pap Disclaimer The Pap test is a screening test to aid in the detection of cervical and vaginal cancers and their precursor lesions. It is not a diagnostic procedure and should not be used as the sole means of detecting malignancy. Both false-positive and false-negative results may occur. 05/23/2023 11:54 AM CDT [facility] Gross Description The specimen is received in SurePath fixative and properly labeled. 1 Pap-stained SurePath slide is prepared. 05/23/2023 11:54 AM CDT [facility] Embedded Images 11:54 AM CDT [facility] Other Specimen Type ENTIRE ENDOCERVIX / Unknown 05/12/2023 1:35 PM CDT 05/12/2023 3:54 PM CDT Comment:LMP: No LMP recorded . (Menstrual status: Irregular). Sheron Lenz APRN, CNP LAB PATHOLOGY Performing Organization Address City/State/[facility] Co de Phone Number [facility] [address] [place] [address] * MM Mammogram Screening Bilat W Implants W 3D Karthik W CAD (12/14/2021 9:43 AM CDT) Anatomical Region Laterality Modality Breast Bilateral Mammography Impressions 12/14/2021 9:55 AM CDT : ACR BI-RADS Category 2: Benign RECOMMENDATION: Follow Up Imaging in 12 months - Bilateral The results and recommendations of this examination will be communicated to the patient. Narrative 12/14/2021 9:55 AM CDT MM MAMMOGRAM SCREENING BILAT W IMPLANTS W 3D KARTHIK W CAD performed on 12/14/21 Compared to: 08/02/2020 MM Mammogram Screening Bilat W Implants W 3D Karthik W CAD and 06/16/2019 MM Mammogram Screening Bilat W Implants W CAD ?? FINDINGS: Bilateral screening mammogram was performed with the assistance of Computer-Aided Detection and breast tomosynthesis. The breasts have scattered areas of fibroglandular density. There are findings of breast augmentation. There is no radiographic evidence of malignancy. ?? Sheron Lenz APRN, CNP RAD LUIS * (ABNORMAL) LIPID PANEL AND DIRECT LDL(IF NEEDED) (11/23/2021 10:31 AM PHOTOGRAPHY MANAGER) Cholesterol 247(H) 0 - 199 mg/dL 11/23/2021 11:44 AM [facility] Triglyceride 112 <=149 mg/dL 11/23/2021 11:44 AM [facility] HDL Cholesterol 54 >=40 mg/dL 2 11:44 AM [facility] LDL, Calculated 171(H) <130 mg/dL 2 11:44 AM [facility] Non HDL Chol, Calculated 193(H) <=159 mg/dL 11/23/2021 11:44 AM [facility] Cholesterol/HDL Ratio 4.6 11/23/2021 11:44 AM [facility] Hours Fasting 12 11/23/2021 11:44 AM [facility] Blood Venipuncture / Unknown 11/23/2021 10:31 AM PHOTOGRAPHY MANAGER 11/23/2021 10:35 AM [facility] Sheron Lenz APRN, [facility] LAB_1 [facility] [address] [place] [address] [phone] * HIV Antibody (05/05/2006 9:12 AM CDT) HIV 1/HIV 2 Non Reac Non Reac HP CONVERSION 05/05/2006 9:12 AM CDT Bridget Rios APRN, GROUND WORKER LAB_1 HP CONVERSION * Hepatitis C Antibody, with Reflex (05/05/2006 9:12 AM CDT) Hepatitis C Antibody Non-reac Non Reac HP CONVERSION 05/05/2006 9:12 AM CDT Bridget Rios APRN, CNP LAB_1 HP CONVERSION from Last 3 Months or Most Recently Relevant to Health Maintenance Care Teams Supervisor Smoke Control Relationship Specialty Start Date End Date Bridget Rios, SOLAR ENERGY TECHNICIAN, GROUND WORKER PCP - General 05/30/16
--- OUTSIDE RECORDS SUMMARY | 2024-04-01 22:08 | XMS_ITS | Referral Summary ---
Author Organization [facility] Address [address] [place] [address] Care Team Providers Care General Assembler Name Role Phone [facility], [facility] Primary Care Provider Kimberley Brunson MD Unavailable [phone] Desean Hernandez MD Unavailable [phone] Allergies Active Allergy Reactions Criticality Noted Date [...] colic on left side 05/19/2019 Urolithiasis 06/20/2016 Social History Tobacco Use Types Packs/Day Years [...] 12/11/2021 2:21 PM CDT Plan of Treatment Not on file Procedures Procedure Name Priority Date/Time Associated Diagnosis [...] Alejandra MD LAB - BLO OD ORDERABLES [facility] [address] (1st floor, no room number) [place] [address], [facility] [phone] from Last 3 Months or Most Recently Relevant to Health Maintenance Advance Directives For more information, please contact: [phone] * Full Code (Latest Code Status on File) Date Activated Date Inactivated Comments 05/19/2019 2:55 PM 06/15/2019 12:13 PM Question Answer Comments Code status determined by: Discussion with mary quintero/legal decision maker * Full Code Date Activated Date Inactivated Comments 05/19/2019 9:51 AM 05/19/2019 2:55 PM Question Answer Comments Code status determined by: Discussion with mary quintero/legal decision maker * Full Code Date Activated Date Inactivated Comments 06/20/2016 11:36 AM 01/27/2019 8:42 PM * Full Code Date Activated Date Inactivated Comments 06/20/2016 5:56 AM 06/20/2016 11:36 AM Care Teams General Assembler Relationship Specialty Start Date End Date [facility], [facility] [address] [place] [address] PCP - General 01/27/19 [place] [address] [place] [address] Family Medicine 05/07/21 Desean Hernandez MD [address] [facility] [place] [address] Assigned Surgical Provider 07/19/23
[2024-04-01 22:52] VITALS: BP 132/74; PULSE 78; RESP 18; TEMP 36.8; O2SAT 99
[2024-04-01 22:53] VITALS: TEMP 36.8
[2024-04-01 23:00] VITALS: BP 132/74; PULSE 78; RESP 18; TEMP 36.8
== END 2024-04-01 23:00 | disposition home or self-care (01) ==
PROVIDERS: Emergency Provider Student in an Organized Health Care Education/Training Program; PCP Family Medicine
DX: G43.909 Migraine, unspecified, not intractable, without status migrainosus (principal)
CPT/HCPCS: 96374; 96375; 99282; 99284; J1200; J1885; J2765; J7120